=== PATIENT | female | born 1955 | race Hispanic/Latino ===

== ENCOUNTER 2019-02-07 19:42 | Emergency (ER) | payer SELFPAY ==
[~2019-02-07] VITALS: Ht 144.8 cm; Wt 83.0 kg
--- OUTSIDE RECORDS SUMMARY | 2019-02-07 19:45 | XMS REPORT ---
Author Author [facility] Address Unknown Phone Unavailable Care Team Providers Care Landscape Crew Member Name Role Phone Unavailable Unavailable Problems This patient has no known problems. Allergies, Adverse Reactions, Alerts This patient has no known allergies or adverse reactions. Medications This patient has no known medications. Encounters Start Date/Time End Date/Time Encounter Type Admission Type Attending [facility] Care Department Encounter ID 2017-10-25 00:00:00 2017-10-25 00:00:00 Outpatient [facility] [id number] 2017-09-27 00:00:00 2017-09-27 00:00:00 Outpatient [facility] [id number] 2017-04-29 08:08:57 2017-04-29 08:08:57 Outpatient [facility] [id number] 2017-04-07 09:08:04 2017-04-07 09:08:04 Outpatient [facility] [id number]
[2019-02-07] MEDS ORDERED: METHYLPREDNISOLONE SOD SUCC 125 MG/2ML VIAL ONE (20:25)
[2019-02-07] MEDS ORDERED: ACETAMINOPHEN 325 MG TAB ONE (20:25)
[2019-02-07] MEDS ORDERED: ACETAMINOPHEN 325 MG TAB PO ONE (20:30)
[2019-02-07] MEDS ORDERED: METHYLPREDNISOLONE SOD SUCC 125 MG/2ML VIAL IM ONE (20:30)
[2019-02-07 20:39] LABS: STREPTOCOCCUS GRP A ANTIGEN NEGATIVE (NEGATIVE)
[2019-02-07 20:46] LABS: INFLUENZAE A&B ANTIGEN (RAPID) NEGATIVE (NEGATIVE)
--- NOTE | 2019-02-07 21:01 | Diagnostic Imaging Report ---
EXAMINATION: CHEST 2 VIEWS INDICATION: ^COUGH, SORE THROAT ^Y COMPARISON: None FINDINGS: PA and lateral views TUBES and LINES: None. LUNGS: Lungs are well inflated. There is no evidence of pneumonia or pulmonary edema. PLEURA: No pleural effusion or pneumothorax. Mild eventration of the right diaphragm. HEART AND MEDIASTINUM: The heart is normal in size. The aortic arch is ectatic. BONES AND SOFT TISSUES: Mild degenerative changes of the spine. There is trace inferior subluxation of the right humeral head. This may be positional. No associated fracture. Soft tissues are unremarkable. UPPER ABDOMEN: No free air under the diaphragm. IMPRESSION: No acute thoracic abnormality. Signed by: Dr. Cynthia Ortega MD on 02/07/2019 8:58 PM
[2019-02-07 21:23] VITALS: BP 108/82
== END 2019-02-07 21:40 | disposition home or self-care (01) ==
LOC: ER 19:42
DX: J20.9 Acute bronchitis, unspecified (principal); I10 Essential (primary) hypertension; E78.5 Hyperlipidemia, unspecified; J45.909 Unspecified asthma, uncomplicated; Z87.891 Personal history of nicotine dependence
CPT/HCPCS: 71046; 83518; 87070; 87400; 99283; J2930

== ENCOUNTER 2019-06-06 10:20 | Emergency (ER) | payer SELFPAY ==
[~2019-06-06] VITALS: Ht 144.8 cm; Wt 83.0 kg
--- OUTSIDE RECORDS SUMMARY | 2019-06-06 10:24 | XMS REPORT | Clinical Summary ---
Author Author [facility] Organization [facility] Address Unknown Phone Unavailable Care Team Providers Care Transport Assistant Name Role Phone Marlin Colvin MD PCP Allergies Comments Active Allergy Reactions Severity Noted Date Zach Inhibitors Cough Medium 12/11/2007 Medications End Date Status Medication Sig Dispensed Refills Start Date Active polyethylene glycol Add lukewarm 4000 mL 0 (GOLYTELY) [id number] drinking 6 -5.86 gram oral water to the solutionIndications: fill lydia (4 Family history of colon liters) and cancer shake. Drink as directed by your doctor.. Active aspirin 81 mg delayed Take 1 tablet 90 tablet 0 release by mouth 7 tabletIndications: daily. Dyspnea, unspecified type Active ketoconazole (NIZORAL) 2 Apply to 60 g 2 % topical affected area 8 creamIndications: daily. Onychomycosis Active ergocalciferol (VITAMIN Take 1 12 capsule 0 D2) 50,000 unit capsule by 8 capsuleIndications: mouth weekly. Vitamin D deficiency Active hydroCHLOROthiazide Take 1 tablet 90 tablet 0 (HYDRODIURIL) 25 mg by mouth 8 tabletIndications: Leg daily as swelling needed (leg swelling). Active fluticasone Inhale 1 Puff 60 Each 3 propion-salmeterol by mouth 2 8 (ADVAIR) 250-50 mcg/dose times daily. diskus inhalerIndications: Moderate persistent asthma without complication Active simvastatin (ZOCOR) 20 mg Take 1 tablet 90 tablet 3 tabletIndications: by mouth at 9 Hypercholesterolemia bedtime nightly. 02/07/2020 Active amLODIPine (NORVASC) 10 TOME 1 90 tablet 3 mg tabletIndications: TABLETA POR 9 Essential hypertension LA BOCA CADA ABBIE PARA LA MAIRSOL PRESION Active montelukast (SINGULAIR) Take 1 tablet 90 tablet 3 10 mg tabletIndications: by mouth at 9 Moderate persistent bedtime asthma without nightly. complication Active albuterol 90 Inhale 2 30 g 3 mcg/actuation Puffs by 9 inhalerIndications: mouth every 4 Restrictive airway hours as disease, Asthmatic needed for bronchitis, severe Wheezing or persistent, uncomplicated Shortness of Breath. Active loratadine (CLARITIN) 10 Take 1 tablet 90 tablet 3 mg tabletIndications: by mouth 9 Cough daily as needed for Allergies. Active losartan (COZAAR) 50 mg TOME 45 tablet 1 tabletIndications: 1/2(MEDIA) 9 Essential hypertension TABLETA POR LA BOCA CADA ABBIE Active Miscellaneous Medical by 1 Each 0 Supply MiscIndications: Misc.(Non-Jem 9 MARY GRACE (obstructive sleep g; Combo apnea) Route) route Apap 16-25 cm H2O for moderate sleep apnea. 10/23/2018 Discontinued montelukast (SINGULAIR) Take 1 tablet 90 tablet 3 10 mg tabletIndications: by mouth at 7 Asthmatic bronchitis, bedtime severe persistent, with nightly. acute exacerbation 06/13/2018 Discontinued predniSONE (DELTASONE) 50 Take 1 tablet 7 tablet 0 mg tabletIndications: by mouth 7 Dyspnea, unspecified type daily. 07/27/2018 Discontinued albuterol (PROVENTIL HFA) Inhale 2 30 g 3 90 mcg/actuation Puffs by 7 inhalerIndications: mouth every 4 Restrictive airway hours as disease, Asthmatic needed for bronchitis, severe Wheezing or persistent, uncomplicated Shortness of Breath. 06/13/2018 Discontinued albuterol (PROVENTIL HFA) Inhale 2 30 g 3 90 mcg/actuation Puffs by 8 inhalerIndications: mouth every 4 Restrictive airway hours as disease, Asthmatic needed for bronchitis, severe Wheezing or persistent, uncomplicated Shortness of Breath. 06/29/2018 Discontinued amLODIPine (NORVASC) 10 TOME 1 90 tablet 0 05/25/201 mg tabletIndications: TABLETA POR 8 Essential hypertension LA BOCA CADA ABBIE PARA LA MARISOL PRESION 06/29/2018 Discontinued simvastatin (ZOCOR) 20 mg Take 1 tablet 90 tablet 0 tabletIndications: by mouth at 8 Hypercholesterolemia bedtime nightly. 06/29/2018 Discontinued loratadine (CLARITIN) 10 Take 1 tablet 90 tablet 0 mg tabletIndications: by mouth 8 Cough daily as needed for Allergies. 06/29/2018 Discontinued losartan (COZAAR) 50 mg TOME 45 tablet 1 tabletIndications: 11/15(MEDIA) 8 Essential hypertension TABLETA POR LA BOCA CADA ABBIE 06/29/2018 Discontinued fluticasone-salmeterol Inhale 1 Puff 60 Each 1 (ADVAIR) 250-50 mcg/dose by mouth 2 8 diskus times daily. inhalerIndications: Dyspnea, unspecified type 06/29/2018 Discontinued hydroCHLOROthiazide Take 1 tablet 90 tablet 0 (HYDRODIURIL) 25 mg by mouth 8 tabletIndications: Leg daily as swelling needed (leg swelling). 03/26/2019 Discontinued predniSONE (DELTASONE) 20 Take 1 tablet 4 tablet 0 mg tabletIndications: by mouth 8 Moderate persistent daily. asthma without complication 07/27/2018 Discontinued fluticasone-salmeterol Inhale 1 Puff 60 Each 1 (ADVAIR) 250-50 mcg/dose by mouth 2 8 diskus times daily. inhalerIndications: Moderate persistent asthma without complication 02/22/2019 Discontinued losartan (COZAAR) 50 mg TOME 45 tablet 1 tabletIndications: 11/15(MEDIA) 8 Essential hypertension TABLETA POR LA BOCA CADA ABBIE 07/27/2018 Discontinued simvastatin (ZOCOR) 20 mg Take 1 tablet 90 tablet 0 tabletIndications: by mouth at 8 Hypercholesterolemia bedtime nightly. 07/27/2018 Discontinued amLODIPine (NORVASC) 10 TOME 1 90 tablet 0 mg tabletIndications: TABLETA POR 8 Essential hypertension LA BOCA CADA ABBIE PARA LA MARISOL PRESION 07/27/2018 Discontinued loratadine (CLARITIN) 10 Take 1 tablet 90 tablet 0 mg tabletIndications: by mouth 8 Cough daily as needed for Allergies. 03/26/2019 Discontinued codeine-guaiFENesin Take 5 mL by 120 mL 0 (CHERATUSSIN AC) 10-100 mouth 3 times 8 mg/5 mL syrupIndications: daily as Cough needed for Cough. 02/22/2019 Discontinued albuterol 90 Inhale 2 30 g 3 mcg/actuation Puffs by 8 inhalerIndications: mouth every 4 Restrictive airway hours as disease, Asthmatic needed for bronchitis, severe Wheezing or persistent, uncomplicated Shortness of Breath. 12/22/2018 Discontinued simvastatin (ZOCOR) 20 mg Take 1 tablet 90 tablet 0 tabletIndications: by mouth at 8 Hypercholesterolemia bedtime nightly. 12/22/2018 Discontinued amLODIPine (NORVASC) 10 TOME 1 90 tablet 0 mg tabletIndications: TABLETA POR 8 Essential hypertension LA BOCA CADA ABBIE PARA LA MARISOL PRESION 02/22/2019 Discontinued loratadine (CLARITIN) 10 Take 1 tablet 90 tablet 0 mg tabletIndications: by mouth 8 Cough daily as needed for Allergies. 02/22/2019 Discontinued montelukast (SINGULAIR) Take 1 tablet 90 tablet 3 10 mg tabletIndications: by mouth at 8 Moderate persistent bedtime asthma without nightly. complication 02/22/2019 Discontinued simvastatin (ZOCOR) 20 mg Take 1 tablet 90 tablet 0 tabletIndications: by mouth at 9 Hypercholesterolemia bedtime nightly. 02/22/2019 Discontinued amLODIPine (NORVASC) 10 TOME 1 90 tablet 0 mg tabletIndications: TABLETA POR 9 Essential hypertension LA BOCA CADA ABBIE PARA LA MARISOL PRESION Active Problems Problem Noted Date MARY GRACE (obstructive sleep apnea) Needs APAP 16-25 H2O 05/31/2018 BMI 39.0-39.9,adult 02/28/2017 Family history of colon cancer 08/23/2014 Cough 05/08/2008 Asthma, moderate persistent 12/11/2007 Allergic rhinitis, cause unspecified 10/12/2006 HTN (hypertension), benign 07/20/2006 Hypercholesterolemia 07/15/2006 Asthmatic bronchitis, severe persistent, uncomplicated SOB (shortness of breath) Encounters Care Team Description Date Type Specialty Jasmyne, Estrella R Oropharyngeal dysphagia (Primary Dx) 05/21/2019 Hospital Speech Therapy Encounter Marlin Colvin MD Dysphagia, unspecified type 05/21/2019 Hospital Radiology Encounter 05/21/2019 Travel Marlin Colvin MD Preventative health care 04/12/2019 Ancillary Radiology Procedure Marlin Colvin MD Essential hypertension; Prediabetes 04/12/2019 Lab Appointment Lab Marlin Colvin MD [facility] health care 04/12/[address] [facility] Silvia Don 03/27/2019 Clinical Case Social Work Mgt Marlin Colvin MD Essential hypertension (Primary Dx); Hypercholesterolemia; Preventative health care; Dysphagia, unspecified type; Prediabetes; Dysphasia; Coarse tremors; MARY GRACE (obstructive sleep apnea) 03/26/[address] [facility] Marlin Colvin MD [facility] health care 03/26/[address] [facility] 03/26/2019 Jordan Nugent MD Dyspnea on exertion (Primary Dx); Hypercholesterolemia; Essential hypertension; Moderate persistent asthma without complication; Restrictive airway disease; Asthmatic bronchitis, severe persistent, uncomplicated; Cough 02/22/2019 Office Visit Pulmonology Reuben Severino RN 02/22/2019 Clinical Case Social Work Mgt 02/22/2019 Jordan Nugent MD Hypercholesterolemia; Essential hypertension 12/22/2018 Refill Pulmonology Jordan Weathers MD Moderate persistent asthma without complication (Primary Dx) 10/23/2018 Refill Pulmonology Tori Marley NP Well woman exam (Primary Dx); Need for influenza vaccination 09/19/2018 OB city clerk Jordan Weathers MD Papanicolaou test, as part of routine gynecological examination (Primary Dx); Moderate persistent asthma without complication; Restrictive airway disease; Asthmatic bronchitis, severe persistent, uncomplicated; Hypercholesterolemia; Essential hypertension; Cough 07/27/2018 Office Visit Pulmonology oJrdan Weathers MD Papanicolaou test, as part of routine gynecological examination 07/27/2018 Orders Only Pulmonology Jese Francisco MD Essential hypertension (Primary Dx); Moderate persistent asthma without complication; Hypercholesterolemia; Leg swelling; Cough; Dietary counseling for Above / Below Normal BMI; Exercise counseling for Above Normal BMI Only!; Weakness of both lower extremities 06/29/2018 Office Visit Family Practice Esdras Del Rio MD Moderate persistent asthma without complication (Primary Dx); SOB (shortness of breath); Cough 06/13/2018 Emergency Emergency Medicine after 06/05/2018 Immunizations Name Administration Dates Next Due Albuterol 0.083% (3ml) 08/12/2010 Herpes Zoster Vaccine In 04/07/2018 Clinic Influenza Vaccine 01/25/2017 (Deferred: Other), 10/21/2015 (Deferred: Other - patient to return for vaccine when feeling better.), 08/23/2014, 10/02/2013, 11/13/2012 (Deferred: Unavailable-Patient to return for vaccine later - Unavailable), 11/22/2011 (Deferred: Patient Refused), 11/03/2010, 10/16/2008 Influenza, 09/19/2018 Vaccine<FLUCELVAX>(Multi- Dose) Ipratropium 0.02t (2.5ml) 10/11/2017, 08/12/2010 PPV 23 Pneumococcal 10/16/2008 Polysaccaride Td Tetanus, diphtheria 10/16/2008 Toxoids Vaccine Tdap (Tetanus Toxoid, 03/26/2019 Reduced Diphtheria Toxoid And Acellular Pertussis, Absorbed) Triamcinolone 40mg/ml Inj 05/13/2008 Family History Medical History Relation Name Comments Diabetes Brother Cancer Father colon cancer Diabetes Father Hypertension Father Arthritis Mother Diabetes Mother Heart Mother Hypertension Mother Stroke Mother Unexplained Son Relation Name Status Comments Brother Brother Alive Brother Alive Daughter Alive Daughter Alive Father colon cancer (Age 63) Maternal Grandfather Maternal Grandmother Mother heart attack (Age 74) Paternal Grandfather Paternal Grandmother Sister Alive Sister Alive Sister Alive Sister Alive Sister Alive Son Alive Son Son Alive Social History Date Tobacco Use Types Packs/Day Years Used Never Smoker Smokeless Tobacco: Never Used Tobacco Cessation: Counseling Given: No Drinks/Week oz/Week Comments Alcohol Use No Food Insecurity Answer Date Recorded Within the past 12 months, you worried that your Never true 04/07/2018 food would run out before you got money to buy more. Within the past 12 months, the food you bought Never true 04/07/2018 just didn't last and you didn't have money to get more. Sex Assigned at Date Recorded Not on file Industry Job Start Date Occupation Not on file Not on file Not on file Travel End Travel History Travel Start No recent travel history available. Last Filed Vital Signs Reading Time Taken Comments Vital Sign 149/99 03/26/2019 12:58 PM CDT Blood Pressure 85 03/26/2019 12:58 PM CDT Pulse 37 C (98.6 F) 03/26/2019 12:58 PM CDT Temperature 20 03/26/2019 12:58 PM CDT Respiratory Rate 97% 07/27/2018 2:29 PM CDT Oxygen Saturation - - Inhaled Oxygen Concentration 84.4 kg (186 lb) 03/26/2019 12:58 PM CDT Weight 147.3 cm (4' 10") 03/26/2019 12:58 PM CDT Height 38.87 03/26/2019 12:58 PM CDT Body Mass Index Plan of Treatment Care Team Description Date Type Specialty Benito Kang Jr., MD [address] [place], [place] [id number] waitlist pt: 2 week lab follow up 06/12/2019 Office Visit Family Practice Jordan Weathers MD [address] [place] [address] 07/05/2019 Office Visit Pulmonology Health Maintenance Due Date Last Done Comments Breast Cancer Scrn 04/12/2020 04/12/2019, 04/28/2018, 03/07/2017, (Yearly) Additional history exists Colorectal Cancer Scrn 04/12/2020 04/12/2019, 11/24/2017, 12/03/2016, Annual (FIT/FOBT) Age 52 Additional history exists to 77 Cervical Cancer Scrn (3 09/19/2021 09/19/2018, 02/17/2015, 11/24/2010 Yrs) Procedures Comments Procedure Name Priority Date/Time Associated Diagnosis XRAY MODIFIED BARIUM Routine 05/21/2019 Dysphagia, unspecified SWALLOW W CINE/VIDEO 11:39 AM CDT type (MBS) FECAL OCCULT BLOOD Routine 04/12/2019 Preventative health care 4:51 PM CDT MAMMOGRAM BILAT SCREEN Routine 04/12/2019 Preventative health care DIGITAL 10:43 AM CDT HEMOGLOBIN A1C Routine 04/12/2019 Prediabetes 8:46 AM CDT LIPID PROFILE Routine 04/12/2019 Essential hypertension 8:46 AM CDT LIVER PROFILE Routine 04/12/2019 Essential hypertension 8:46 AM CDT BASIC METABOLIC PANEL Routine 04/12/2019 Essential hypertension 8:46 AM CDT CBC/DIFF Routine 04/12/2019 Essential hypertension 8:46 AM CDT HEMOCCULT KIT FOR Routine 03/27/2019 [facility] care SPECIMEN COLLECTION AT 2:00 AM CDT HOME HPV HIGH-RISK Routine 09/19/2018 Well woman exam 1:39 PM [employer] [facility] CYTOLOGY Routine 09/19/2018 12:00 AM [employer] POCT BNP (B-TYPE Routine 06/13/2018 NATRIURETIC PEPTIDE) 6:51 AM CDT 12 LEAD EKG Routine 06/13/2018 6:48 AM CDT D-DIMER STAT 06/13/2018 6:48 AM CDT TROPONIN I POC Routine 06/13/2018 12:33 AM CDT BASIC METABOLIC PANEL STAT 06/13/2018 12:32 AM CDT CBC/DIFF STAT 06/13/2018 12:32 AM CDT XRAY CHEST 2 VIEWS STAT 06/12/2018 Moderate persistent 6:45 PM CDT asthma without complication after 06/05/2018 Results * XRAY MODIFIED BARIUM SWALLOW W CINE/VIDEO (MBS) (05/21/2019 11:39 AM CDT) Specimen Impressions Performed At IMPRESSION: SMS 1. Normal modified barium swallow. Details please refer to the report of a speech therapist. 2. Normal esophagram. This does not exclude reflux at times. 3. Thickening of gastric rugae suggestive of gastritis. Correlation with H. Pylori testing recommended. Signed By: Monika Wilson MD, 05/22/2019 10:08 AM Narrative Performed At EXAM: XRAY MODIFIED BARIUM SWALLOW W CINE/VIDEO (MBS) [facility] EXAM: ROUTINE ESOPHAGRAM DATE: 05/21/2019 11:39 AM INDICATION: Dysphagia. ADDITIONAL INFORMATION: Parkinson's disease? TECHNIQUE: Video fluoroscopy was done with patientupright, lateral projection, during swallowing of various consistencies of barium with speech therapist in attendance, IMG 18/FLT 78 secs/TDAP 7.23 Gycm^2 FINDINGS: The patient swallowed adequate amount of barium which passed into esophagus promptly. There is adequate opening of the upper esophageal sphincter. The oral and pharyngeal phases of swallowing are [unremarkable]. No penetration into the laryngeal vestibule or aspiration into the trachea occurred. During this, a barium swallow was carried out using single contrast techniques. The esophagus shows the normal caliber peristalsis and emptying. There is no hiatal hernia. Reflux was seen today but this does not exclude reflux at other times. Incidentally, adequate gastric emptying is noted. There is thickening of gastric folds suggesting chronic gastritis. Procedure Note Interface, Rad/Mammog In - 05/22/2019 10:13 AM CDT EXAM: XRAY MODIFIED BARIUM SWALLOW W CINE/VIDEO (MBS) EXAM: ROUTINE ESOPHAGRAM DATE: 05/21/2019 11:39 AM INDICATION: Dysphagia. ADDITIONAL INFORMATION: Parkinson's disease? TECHNIQUE: Video fluoroscopy was done with patient upright, lateral projection, during swallowing of various consistencies of barium with speech therapist in attendance, IMG 18/FLT 78 secs/TDAP 7.23 Gycm^2 FINDINGS: The patient swallowed adequate amount of barium which passed into esophagus promptly. There is adequate opening of the upper esophageal sphincter. The oral and pharyngeal phases of swallowing are [unremarkable]. No penetration into the laryngeal vestibule or aspiration into the trachea occurred. During this, a barium swallow was carried out using single contrast techniques. The esophagus shows the normal caliber peristalsis and emptying. There is no hiatal hernia. Reflux was seen today but this does not exclude reflux at other times. Incidentally, adequate gastric emptying is noted. There is thickening of gastric folds suggesting chronic gastritis. IMPRESSION IMPRESSION: 1. Normal modified barium swallow. Details please refer to the report of a speech therapist. 2. Normal esophagram. This does not exclude reflux at times. 3. Thickening of gastric rugae suggestive of gastritis. Correlation with H. Pylori testing recommended. Signed By: Monika Wilson MD, 05/22/2019 10:08 AM Performing Organization Address City/State/Zipcode Phone Number SMS * OCCULT BLOOD ICT (04/12/2019 4:51 PM CDT) Occult Blood Negative NEG [facility] ICT Specimen Stool Performing Organization Address City/State/Zipcode Phone Number [facility] * MAMMOGRAM BILAT SCREEN DIGITAL (04/12/2019 10:43 AM CDT) Specimen Impressions Performed At IMPRESSION: BENIGN SMS There is no mammographic evidence of malignancy. A 1 year screening mammogram is recommended. This document has been electronically signed. Collin Dotson/fior:04/12/2019 11:03:54 Slurry Blender: Ms. Suyapa Art RT(R)(M), [facility] letter sent: Mammography Normal Mammogram BI-RADS: 2 Benign G0202 z12.31 Narrative Performed At #[id number] - MAMMOGRAM BILAT SCREEN DIGITAL SMS BILATERAL DIGITAL SCREENING MAMMOGRAM WITH CAD: 04/12/2019 CLINICAL: Screening for malignancy. Comparison is made to exams dated:04/28/2018, 03/07/2017, 02/19/2016, and 12/04/2014 [facility]. The tissue of both breasts is predominately fatty. Current study was also evaluated with a Computer Aided Detection (CAD) system. There are benign calcifications in both breasts. No significant masses, calcifications, or other findings are seen in either breast. There has been no significant interval change. Procedure Note Interface, Rad/Mammog In - 04/12/2019 12:55 PM CDT #[id number] - MAMMOGRAM BILAT SCREEN DIGITAL BILATERAL DIGITAL SCREENING MAMMOGRAM WITH CAD: 04/12/2019 CLINICAL: Screening for malignancy. Comparison is made to exams dated: 04/28/2018, 03/07/2017, 02/19/2016, and 12/04/2014 [facility]. The tissue of both breasts is predominately fatty. Current study was also evaluated with a Computer Aided Detection (CAD) system. There are benign calcifications in both breasts. No significant masses, calcifications, or other findings are seen in either breast. There has been no significant interval change. IMPRESSION IMPRESSION: BENIGN There is no mammographic evidence of malignancy. A 1 year screening mammogram is recommended. This document has been electronically signed. Collin Dotson/fior:04/12/2019 11:03:54 Slurry Blender: Ms. Suyapa Art RT(R)(M), [facility] letter sent: Mammography Normal Mammogram BI-RADS: 2 Benign G0202 z12.31 Performing Organization Address City/[facility]/Zipcode Phone Number SMS * HEMOGLOBIN A1C (04/12/2019 8:46 AM CDT) Hemoglobin A1c 6.2 (H) 4.3 - 6.1 % [facility] IMMUNOLOGY Est Average 131.2 mg/dL [facility] Gluc IMMUNOLOGY Specimen Blood Performing Organization Address [facility] Phone Number [facility] * LIVER PROFILE (04/12/2019 8:46 AM CDT) Protein, Total, 7.1 6.0 - 8.3 g/dL [facility] Serum 1 Albumin 4.2 3.7 - 5.3 g/dL [facility] 1 Bilirubin, 0.8 0.2 - 1.2 mg/dL [facility] Total 1 Alkaline 95 34 - 104 U/L [facility] Phosphatase, S 1 AST (SGOT) 24 13 - 39 U/L [facility] 1 ALT 23 7 - 52 U/L [facility] 1 D Bilirubin 0.1 0.0 - 0.2 mg/dL [facility] 1 Specimen Blood Performing Organization Address [facility] Phone Number M[facility]YS [facility] 1 * LIPID PROFILE (04/12/2019 8:46 AM CDT) Cholesterol 184 mg/dL [facility] Comment: 1 REFERENCE RANGE: Desirable: <200 mg/dL Borderline: 200-240 mg/dL High Risk: >240 mg/dL Triglyceride 100 <150 mg/dL [facility] Comment: 1 REFERENCE RANGE: Normal: <150 mg/dL Borderline High: 150-199 mg/dL High: 200-499 mg/dL Very High: >fp=068 mg/dL HDL 61 mg/dL [facility] Comment: 1 Increased CHD risk: <40 mg/dL Decreased CHD risk: >60 mg/dL LDL 103 mg/dL [facility] Comment: 1 REFERENCE RANGE: Optimal: <100 mg/dL Near Optimal: 100-129 mg/dL Borderline High: 130-159 mg/dL High: 160-189 mg/dL Very High: >sw=353 mg/dL Specimen Blood Performing Organization Address City/State/Zipcode Phone Number MISYS [facility] 1 * CBC/DIFF (04/12/2019 8:46 AM CDT) Only the most recent of 2 results within the time period is included. WBC 5.8 4.5 - 11.0 K/uL BT [facility] 2 RBC 4.40 4.20 - 5.40 M/uL [facility] 2 Hemoglobin 13.6 12.0 - 16.0 g/dL [facility] 2 Hematocrit 42.6 37.0 - 47.0 % BT [facility] 2 MCV 97 (H) 82 - 92 fL [facility] 2 MCH 30.9 27.0 - 32.0 pg [facility] 2 MCHC 31.9 (L) 32.0 - 36.0 g/dL [facility] 2 RDW 49.3 (H) 36.4 - 46.3 fL BT [facility] 2 Platelets 274 150 - 400 K/uL [facility] 2 Mean Platelet 10.4 9.4 - 12.4 fL [facility] Volume 2 Percent NRBC 0.0 [facility] 2 Absolute NRBC 0.00 [facility] 2 Neutrophils 45.9 34.0 - 70.0 % [facility] 2 Lymphs 38.3 20.0 - 50.0 % [facility] 2 Monocytes 11.7 5.0 - 12.0 % [facility] 2 Eos 3.3 0.7 - 5.0 % [facility] 2 Basos 0.5 0.1 - 1.2 % BT [facility] 2 Immature 0.3 0.0 - 0.5 BT [facility] Granulocytes 2 Neutrophils 2.66 1.56 - 6.13 K/uL BT [facility] (Absolute) 2 Lymphs 2.22 1.18 - 3.74 K/uL BT [facility] (Absolute) 2 Monocytes(Absol 0.68 (H) 0.24 - 0.36 K/uL BT [facility] [place]) 2 Eos (Absolute) 0.19 0.04 - 0.36 K/uL BT [facility] 2 Baso (Absolute) 0.03 0.01 - 0.08 K/uL BT [facility] 2 Immature Grans 0.02 0.00 - 0.03 K/uL BT [facility] (Abs) 2 Specimen Blood Performing Organization Address [facility] Phone Number [facility] 2 * BASIC METABOLIC PANEL (04/12/2019 8:46 AM CDT) Only the most recent of 2 results within the time period is included. Pathologist [facility] CO2 30 21 - 31 mmol/L BT [facility] 1 Chloride 103 98 - 107 mmol/L BT [facility] 1 Potassium 4.0 3.5 - 5.1 mmol/L BT [facility] 1 Sodium 142 136 - 145 mmol/L [facility] 1 Glucose 90 70 - 110 mg/dL [facility] 1 BUN 14 7 - 25 mg/dL [facility] 1 Creatinine 0.50 (L) 0.6 - 1.2 mg/dL [facility] 1 Anion Gap 9 BT [facility] 1 Calcium 9.6 8.6 - 10.3 mg/dL [facility] 1 GFR, Estimated >60 mL/min/1.73 m2 [facility] 1 eGFR If Africn >60 mL/min/1.73 m2 [facility] Am 1 Specimen Blood Performing Organization Address [facility] Phone Number [facility] * HPV HIGH-RISK (09/19/2018 1:39 PM [employer]) Pathologist [facility] HPV High Risk Negative NEG BT DIAGNOSTIC Comment: IMMUNOLOGY The APTIMA HPV Assay is an in vitro nucleic acid amplification test for the qualitative detection of E6/E7 viral messenger RNA (mRNA) from 14 high-risk types of human papillomavirus (HPV) in cervical specimens. The high-risk HPV types detected by the assay include: 16,18,31,33,35,39,45,51,52,56, 58,59,66, and 68. CoPath Spec [id number] BT DIAGNOSTIC Number IMMUNOLOGY Specimen Performing Organization Address [facility] Phone Number M[facility]YS DIAGNOSTIC IMMUNOLOGY * BTGH CYTOLOGY (09/19/2018 12:00 AM ASSEM[employer]ER [employer]UC[employer]) HX FINAL Cervicovaginal (liquid-based COPATH DIAGNOSIS preparation): Satisfactory for evaluation No presence of endocervical/transformation zone Cytolysis Negative for intraepithelial lesion or malignancy Specimen Narrative Performed At Name LEAH DAVENPORT Date of 1955 Hospital Number [id number] [facility] (OP) CYTOPATHOLOGY Collected:09/19/2018 00:00 Received: 09/21/2018 10:20 FINAL DIAGNOSIS Cervicovaginal (liquid-based preparation): Satisfactory for evaluation No presence of endocervical/transformation zone Cytolysis Negative for intraepithelial lesion or malignancy Electronically Signed Out By Tressa Gilmore Clinical History Date of Last Menstrual Period: 09/28/2010 Menstrual History: Pregnancies: (1 set of twins) A0 Specimen Received: One ThinPrep Vial Educational Note: The pap smear/test is a screening test for cervical cancer.As with screening procedures, both false negative and false positive results may occur.Hence, the results should be interpreted in the context of patient's history and current clinical information. The slide has been analyzed by the automated ThinPrep Imaging System, [employer], [place], [place]. Performing Organization Address [facility] Phone Number [facility] [place] * POCT BNP (BRAIN NATRIURETIC PEPTIDE) (06/13/2018 6:51 AM CDT) B Natr Pept POC <15 0 - 100 pg/mL BT MAIN-STATION 1 Specimen Performing Organization Address 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 Measurements Intervals [place] Rate: 68 P:44 VT: 186 QRS: 11 QRSD: 100 T: 39 QT: 391 QTc:418 Interpretive Statements SINUS RHYTHM LOW QRS VOLTAGE IN PRECORDIAL LEADS Electronically Signed On 06-13-18 07:06:32 CDT by Angelique Ma M.D. Specimen Performing Organization Address [facility] Phone Number SMS * D-DIMER (06/13/2018 6:48 AM CDT) D-Dimer 0.80 ug/mL,FEU BT MAIN-STATION Comment: 1 Values of quantitative d-Dimer less than 0.40 ug/mL FEU have been reported to be associated with a low probability of deep vein thrombosis/pulmonary embolism. This test alone should not be used to rule out DVT/PE. Specimen Blood Performing Organization Address [facility] Phone Number MISYS BT MAIN-STATION 1 * TROPONIN I POC (06/13/2018 12:33 AM CDT) Troponin POC 0.00 0.00 - 0.08 ng/mL BT MAIN-STATION 1 Specimen Performing Organization Address [facility] Phone Number MISYS BT MAIN-STATION 1 * XRAY CHEST 2 VIEWS (06/12/2018 6:45 PM CDT) Specimen Impressions Performed At IMPRESSION: SMS 1.No acute thoracic abnormality. Specifically, no focal consolidation. 2.Persistent elevation of the right hemidiaphragm, mildly increased from prior. Dictated By: Yessica Cam MD, 06/12/2018 7:55 PM I have reviewed the study and agree with the findings in this report. Signed By: Nika Calderon MD, 06/12/2018 8:04 PM Narrative Performed At EXAMINATION:XRAY CHEST 2 VIEWS SMS INDICATION: cough COMPARISON:Chest radiographs 10/12/2017. FINDINGS:PA and lateral views TUBES and LINES:None. LUNGS: Elevation of the right hemidiaphragm. Lungs are clear. There is no evidence of pneumonia or pulmonary edema. PLEURA:Trace left pleural effusion. HEART AND MEDIASTINUM:The cardiomediastinal silhouette is unremarkable. Tortuous thoracic aorta. BONES AND SOFT TISSUES:No acute osseous lesion.Soft tissues are unremarkable. Degenerative changes of the acromioclavicular joints bilaterally. UPPER ABDOMEN: No free air under the diaphragm. Procedure Note Interface, Rad/Mammog In - 06/12/2018 8:09 PM CDT EXAMINATION: XRAY CHEST 2 VIEWS INDICATION: cough COMPARISON: Chest radiographs 10/12/2017. FINDINGS: PA and lateral views TUBES and LINES: None. LUNGS: Elevation of the right hemidiaphragm. Lungs are clear. There is no evidence of pneumonia or pulmonary edema. PLEURA: Trace left pleural effusion. HEART AND MEDIASTINUM: The cardiomediastinal silhouette is unremarkable. Tortuous thoracic aorta. BONES AND SOFT TISSUES: No acute osseous lesion. Soft tissues are unremarkable. Degenerative changes of the acromioclavicular joints bilaterally. UPPER ABDOMEN: No free air under the diaphragm. IMPRESSION IMPRESSION: 1. No acute thoracic abnormality. Specifically, no focal consolidation. 2. Persistent elevation of the right hemidiaphragm, mildly increased from prior. Dictated By: Yessica Cam MD, 06/12/2018 7:55 PM I have reviewed the study and agree with the findings in this report. Signed By: Nika Calderon MD, 06/12/2018 8:04 PM Performing Organization Address City/State/Zipcode Phone Number SMS after 06/05/2018 Insurance Type Payer Benefit Subscriber ID Effective Phone Address Plan / Dates Group [place] [employer] [place] 2018- [phone] [employer] [id number] PLANN[place], [place] [address] [employer] xxxxx 2018- [phone] [id number] [id number] [address] [place] [address]
[2019-06-06] MEDS ORDERED: SODIUM CHLORIDE 0.9% 500ML 500 ML IV STA (10:43)
--- NOTE | 2019-06-06 10:54 | NUR ---
PATIENT IN RESTROOM AT THIS TIME; PATIENT TO GO TO CT IMMEDIATELY FOLLOWING
--- NOTE | 2019-06-06 11:04 | NUR ---
GAVE PACKET OF INFORMATION WITH COMM[employer]ITY [employer] FOR ASSISTANCE WITH LOW TO NO INCOME TO PATIENT. RESOURCES THAT PATIENT MAY BE ABLE TO FOLLOW UP UPON DISCHARGE. PT EDUCATED ON EACH RESOURCE AND UNDERSTANDING HOW TO FOLLOW UP TO SEE IF QUALIFIED FOR EACH RESOURCE.
--- NOTE | 2019-06-06 11:23 | Diagnostic Imaging Report ---
EXAMINATION: CHEST SINGLE (PORTABLE) INDICATION: Pain COMPARISON: None FINDINGS: TUBES and LINES: None. LUNGS: The lung volumes are normal. No focal consolidation or pulmonary edema. PLEURA: No pleural effusion or pneumothorax. HEART AND MEDIASTINUM: The cardiomediastinal silhouette is normal in size and contour. BONES AND SOFT TISSUES: No acute fracture or dislocation. UPPER ABDOMEN: No free air under the diaphragm. IMPRESSION: No focal pneumonia or pulmonary edema. Signed by: Meliza Cedeño MD on 06/06/2019 11:19 AM
--- NOTE | 2019-06-06 11:29 | Diagnostic Imaging Report ---
Exam: Head CT without contrast History: Weakness, tremulous, can't walk Comparison studies: None Technique: Axial images were obtained from the skull base to the vertex. Coronal and sagittal images reconstructed from the axial data. Dose modulation, iterative reconstruction, and/or weight based adjustment of the mA/kV was utilized to reduce the radiation dose to as low as reasonably achievable. Radiation dose: Total DLP: 921 mGy*cm. Estimated effective dose: DLP x 0.015 Intravenous contrast: None Findings: Scalp: No abnormalities. Bones: No fractures, blastic or lytic lesions. Brain sulci: Prominent cerebellar folia particularly along the superior cerebellum and vermis. Similar findings have been reported in patients with history of chronic EtOH in the appropriate clinical setting, among other etiologies. Remaining sulci are normal for age. Ventricles: Normal in size and configuration. No hydrocephalus. Extra-axial spaces: Incidental small midline retrocerebellar arachnoid cyst. No other mass or fluid collection. Parenchyma: No abnormal densities. No masses, acute hemorrhage, acute or chronic vascular insults. Sellar/suprasellar region: Partially CSF of sella, a nonspecific finding. Craniocervical junction: Patent foramen magnum. No Chiari one malformation. Incidental findings: Atherosclerotic calcifications in the carotid siphons. IMPRESSION: 1. No acute intracranial abnormalities. 2. Nonspecific cerebellar volume loss. Signed by: Dr. Zackary Olivo M.D. on 06/06/2019 11:26 AM
[2019-06-06 11:38] LABS: BASOPHILS % 0.7 % (0.0-1.0); EOSINOPHILS % 0.5 % (0.0-6.0); HEMATOCRIT 39.8 % (34.2-44.1); LYMPHOCYTES % 34.2 % (18.0-39.1); MEAN CORPUSCULAR HEMOGLOBIN 30.6 pg (28-32); MEAN CORPUSCULAR HGB CONC 32.7 g/dL (31-35); MEAN CORPUSCULAR VOLUME 93.6 fL (81-99); MONOCYTES # (AUTO) 0.5 (0.2-0.8); MONOCYTES % 7.6 % (4.4-11.3); NEUTROPHILS # (AUTO) 3.4 (2.1-6.9); NEUTROPHILS % 56.7 % (38.7-80.0); PLATELET COUNT 266 x10e3/uL (140-360); RED BLOOD COUNT 4.25 x10e6/uL (3.6-5.1); RED CELL DISTRIBUTION WIDTH 13.6 % (11.7-14.4)
[2019-06-06 11:40] LABS: BILIRUBIN,URINE NEGATIVE (NEGATIVE); CLARITY,URINE CLEAR (CLEAR); COLOR,URINE YELLOW (YELLOW); KETONES,URINE NEGATIVE (NEGATIVE); LEUKOCYTE ESTERASE ,URINE NEGATIVE (NEGATIVE); NITRITE,URINE NEGATIVE (NEGATIVE); PROTEIN,URINE DIPSTICK NEGATIVE (NEGATIVE); URINE UROBILINOGEN 0.2 mg/dL (0.2 - 1)
--- NOTE | 2019-06-06 11:50 | NUR ---
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 ALSO ADVISED WE ARE NOT AFFILIATED WITH [facility] AND THAT THEY WOULD MOST LIKLY BE CONTACTED FROM SOME ONE IN THE BUSINESS OFFICE.
[2019-06-06 12:09] LABS: ALANINE AMINOTRANSFERASE 48 IU/L (0-55); ALBUMIN 3.7 g/dL (3.5-5.0); ALBUMIN/GLOBULIN RATIO 0.7 (0.8-2.0); ALKALINE PHOSPHATASE 99 IU/L (40-150); AMYLASE 64 U/L (25-125); ANION GAP 14.3 mmol/L (8-16); BLOOD UREA NITROGEN 7 mg/dL (7-26); BUN/CREATININE RATIO 10 (6-25); CALCIUM 9.7 mg/dL (8.4-10.2); CARBON DIOXIDE 28 mmol/L (22-29); CHLORIDE 100 mmol/L (98-107); CREATINE KINASE 139 IU/L (29-168); CREATININE, SERUM 0.69 mg/dL (0.57-1.11); EST GLOMERULAR FILTRATION RATE > 60 ML/MIN (60-); GLUCOSE 121 mg/dL (74-118); LIPASE 39 U/L (8-78); MAGNESIUM 2.3 MG/DL (1.3-2.1); POTASSIUM 3.3 mmol/L (3.5-5.1); SODIUM 139 mmol/L (136-145)
[2019-06-06 12:12] LABS: RBC,URINE 0-5 /HPF (0-5); WBC,URINE (MAN) 0-5 /HPF (0-5)
[2019-06-06 12:13] LABS: BACTERIA,URINE FEW /HPF; EPITHELIAL CELLS,URINE RARE /LPF
[2019-06-06] MEDS ORDERED: POTASSIUM CHLORIDE 20 MEQ TAB CR PO ONE (12:21)
[2019-06-06 12:28] LABS: THYROID STIMULATING HORMONE 1.607 uIU/mL (0.350-4.940)
== END 2019-06-06 13:59 | disposition home or self-care (01) ==
LOC: ER 10:20
DX: R53.1 Weakness (principal); E87.6 Hypokalemia; K52.9 Noninfective gastroenteritis and colitis, unspecified; R26.2 Difficulty in walking, not elsewhere classified; I10 Essential (primary) hypertension; E78.5 Hyperlipidemia, unspecified; J45.909 Unspecified asthma, uncomplicated
CPT/HCPCS: 36415; 70450; 71045; 80053; 81001; 82150; 82550; 82553; 83690; 83735; 84443; 84484; 85025; 87086; 93005; 99284; J7040

== ENCOUNTER 2020-08-15 10:28 | Emergency (ER) | payer SELFPAY ==
[~2020-08-15] VITALS: Ht 144.8 cm; Wt 83.0 kg
[2020-08-15] MEDS ORDERED: SODIUM CHLORIDE 0.9% 1000ML 1,000 ML IV STA (10:52)
[2020-08-15 11:03] LABS: BASOPHILS % 0.4 % (0.0-1.0); EOSINOPHILS # (AUTO) 0.2 (0.0-0.4); EOSINOPHILS % 2.4 % (0.0-6.0); HEMATOCRIT 44.8 % (34.2-44.1); HEMOGLOBIN 14.4 g/dL (12.0-16.0); LYMPHOCYTES # (AUTO) 3.3 (1.0-3.2); LYMPHOCYTES % 47.2 % (18.0-39.1); MEAN CORPUSCULAR HEMOGLOBIN 30.3 pg (28-32); MEAN CORPUSCULAR HGB CONC 32.1 g/dL (31-35); MEAN CORPUSCULAR VOLUME 94.1 fL (81-99); MONOCYTES # (AUTO) 0.6 (0.2-0.8); MONOCYTES % 8.4 % (4.4-11.3); NEUTROPHILS # (AUTO) 2.9 (2.1-6.9); NEUTROPHILS % 41.3 % (38.7-80.0); PLATELET COUNT 233 x10e3/uL (140-360); RED BLOOD COUNT 4.76 x10e6/uL (3.6-5.1); RED CELL DISTRIBUTION WIDTH 13.6 % (11.7-14.4)
[2020-08-15 11:13] LABS: INR 0.92; PROTHROMBIN TIME 12.8 seconds (11.9-14.5)
[2020-08-15 11:14] LABS: PARTIAL THROMBOPLASTIN TIME 27.9 seconds (23.8-35.5)
[2020-08-15 11:23] LABS: ALANINE AMINOTRANSFERASE 45 IU/L (0-55); ALBUMIN 4.7 g/dL (3.5-5.0); ALBUMIN/GLOBULIN RATIO 1.2 (0.8-2.0); ALKALINE PHOSPHATASE 108 IU/L (40-150); ANION GAP 13.9 mmol/L (8-16); BLOOD UREA NITROGEN 9 mg/dL (7-26); BUN/CREATININE RATIO 13 (6-25); CALCIUM 10.2 mg/dL (8.4-10.2); CARBON DIOXIDE 28 mmol/L (22-29); CHLORIDE 102 mmol/L (98-107); CREATINE KINASE 118 IU/L (29-168); CREATININE, SERUM 0.67 mg/dL (0.57-1.11); EST GLOMERULAR FILTRATION RATE > 60 ML/MIN (60-); GLUCOSE 99 mg/dL (74-118); POTASSIUM 3.9 mmol/L (3.5-5.1); SODIUM 140 mmol/L (136-145)
--- NOTE | 2020-08-15 11:42 | Diagnostic Imaging Report ---
EXAMINATION: CHEST SINGLE (PORTABLE) INDICATION: Numbness COMPARISON: None FINDINGS: LINES/TUBES:None LUNGS:The lungs are well-inflated. No focal consolidation or pulmonary edema. PLEURA:No pleural effusion or pneumothorax. MEDIASTINUM:The cardiomediastinal silhouette appears normal in size and shape. BONES/SOFT TISSUES:No acute osseous injury. ABDOMEN:No free air under the diaphragm. IMPRESSION: No focal pneumonia or pulmonary edema. Signed by: Meliza Cedeño MD on 08/15/2020 11:39 AM
--- NOTE | 2020-08-15 11:43 | Diagnostic Imaging Report ---
CT BRAIN WO HISTORY: Numbness on right side, possible stroke COMPARISON: Head CT 06/06/2019 TECHNIQUE: Noncontrast axial scans were obtained from skull base to the vertex. Coronal and sagittal reconstructions obtained from the axial data. One or more of the following dose reduction techniques were used: Automated exposure control, adjustment of the mA and/or kV according to patient size, and/or utilization of iterative reconstruction technique. DISCUSSION: Scalp/Skull: Unremarkable. Brain sulci: Appropriate for patient's age. Ventricles: Normal in size and configuration. No hydrocephalus. Extra-axial spaces: Stable mild focal prominence of the subarachnoid space posterior to the cerebellar vermis could be due to a small arachnoid cyst. No additional masses or fluid collections. Mild carotid siphon calcifications are present. Parenchyma: Mild cerebellar atrophy is unchanged. No mass, hemorrhage, or large vascular territory acute infarct. Dural sinuses: No abnormal densities. Sellar/Suprasellar region: Nonspecific partially empty sella. Skull base: Intact. Incidental findings: None. IMPRESSION: 1. No acute intracranial abnormalities. 2. No significant change compared to head CT dated 06/06/2019. 3. Nonspecific mild cerebellar atrophy. Signed by: Dr. Deon Davis M.D. on 08/15/2020 11:40 AM
[2020-08-15 11:44] LABS: THYROID STIMULATING HORMONE 1.815 uIU/mL (0.350-4.940)
--- OUTSIDE RECORDS SUMMARY | 2020-08-15 12:00 | XMS REPORT | Continuity of Care Document ---
Author Author [facility] t Organization [facility] Address [address] [place] [address] Phone Unavailable Care Team Providers Care Product Inspection Coordinator Name Role Phone NONSTAFF PCP Unavailable Elisha PLUMMER Attphys Unavailable Sarahy ARREDONDO, Pako Barros Attphys Marii ARREDONDO, Marlin Attphys Jan Lynch Attphys [phone] Shanell Corbett MD Attphys Davidson ResidentYoel ARREDONDO Attphys Serjio ResidentMDEugene Attphys [phone] Jan VILLEGAS Attphys Unavailable Payers Payer Name Policy Type Policy Number Effective Date Expiration Date S lukasz [employer] [employer] [id number]/2019-08/19/[id number] [address] xxxxx 2019 00:00:00 2020 23:59:59 Brandon Ocasio [facility] PLAN[employer]ANCIAL ASSISTANCE PROGRAMxxx xx2019-08/19/[id number] [place] [address] xxxxx 2019 00:00:00 2019-1106 23:59:59 Brandon Health Problems Condition Name Condition Details Condition Category Status Onset Date Resolution Date Last Treatment Date Treating Clinician Comments Source MARY GRACE (obstructive sleep apnea) Needs APAP 16-25 H2O MARY GRACE (obstructive sleep apnea) Needs APAP 16-25 H2O Disease Active 2018-05-31 00:00:00 [facility] BMI 39.0-39.9,adult BMI 39.0-39.9,adult Disease Active 2017-02-28 00:00 :00 [facility] Family history of colon cancer Family history of colon cancer Disea se Active 2014-08-23 00:00:00 [facility] Cough Cough Disease Active 2008-05-08 00:00:00 [facility] Asthma, moderate persistent Asthma, moderate persistent Disease Active 2007-12-11 00:00:00 [facility] Allergic rhinitis, cause unspecified Allergic rhinitis, caus e unspecified Disease Active 2006-10-12 00:00:00 [facility] HTN (hypertension), benign HTN (hypertension), benign Disease Active 2006-07-20 00:00:00 [facility] Hypercholesterolemia Hypercholesterolemia Disease Active 00:00:00 [facility] Asthmatic bronchitis, severe persistent, uncomplicated Asthmatic bronchitis, severe persistent, uncomplicated Disease Active [facility] SOB (shortness of breath) SOB (shortness of breath) Disease Active [facility] Allergies, Adverse Reactions, Alerts Allergy Name Allergy Type Status Severity Reaction(s) Onset Date Inacti ve Date Treating Clinician Comments Source Enalapril Allergy to Substance Active Severe 2019-02-07 00:00:00 [facility] Zach Inhibitors Propensity to adverse reactions to drug Active Cough 2007-12-11 00:00:00 [facility] Family History Family Member Diagnosis Comments Start Date Stop Date Source Natural brother Diabetes [facility] Natural father [facility] Natural father Diabetes [facility] Natural [facility] Hy[facility] Natural mother Arthritis [facility] Natural mother Diabetes [facility] Natural mother Heart [facility] Natural [facility] Hy[facility] Natural mother Stroke [facility] Natural son Unexplained [facility] Social History Social Habit Start Date Stop Date Quantity Comments Source Sex Assigned At [facility] Alcohol intake 2019-09-20 00:00:00 2019-09-20 00:00:00 Current non-drinker of alcohol (finding) [facility] History SDOH Food Worry 2018-04-07 00:00:00 2018-04-07 [facility] 2018-04-07 00:00:00 2018-04-07 00:00:00 1 [facility] Smoking Status Start Date Stop Date Source Never smoker [facility] Medications Ordered Medication Name Filled Medication Name Start Date Stop Da te Current Medication? Ordering Clinician Indication Dosage Frequency Signature (SIG) Comments Components Source amLODIPine (NORVASC) 10 mg tablet 2020-07-22 00:00:00 2020 23:59:00 Yes Essential hypertension TOME 1 TA BLETA POR LA BOCA CADA ABBIE PARA LA MARISOL PRESION [facility] valsartan (DIOVAN) 80 mg tablet 2020-03-12 00:00:00 Yes Essential hypertension 80mg QD Take 1 tablet by mouth daily. [facility] simvastatin (ZOCOR) 20 mg tablet 2020-03-10 00:00:00 Yes Hypercholesterolemia 20mg Take 1 tablet by mouth at bedtime nig htly. [facility] valsartan (DIOVAN) 80 mg tablet 2019-12-14 00:00:00 00:00:00 No Essential hypertension 80mg QD Take 1 tablet by mouth daily. [facility] albuterol 90 mcg/actuation inhaler 2019-12-11 00:00:00 Yes Asthmatic bronchitis, severe persistent, uncomplicated 2{puff} Inhale 2 Puffs by mouth every 4 hours as needed for Wheezing or Shortness of Breath. [facility] amLODIPine (NORVASC) 10 mg tablet 2019-07-05 00:00:00 2019 00:00:00 No Essential hypertension TOME 1 TA BLETA POR LA BOCA CADA ABBIE PARA LA MARISOL PRESION [facility] fluticasone propion-salmeteroL (ADVAIR) 250-50 mcg/dose disk us inhaler 2019-06-12 00:00:00 Yes Moderate persistent a sthma without complication 1{puff} Q.5D Inhale 1 Puff by mouth 2 times daily. [facility] valsartan (DIOVAN) 80 mg tablet 2019-06-12 00:00:00 00:00:00 No Essential hypertension 80mg QD Take 1 tablet by mouth daily stop l osartan. [facility] Miscellaneous Medical Supply Misc 2019-03-26 00:00:00 Yes MARY GRACE (obstructive sleep apnea) by [facility]Non-Drug; C ombo Route) route Apap 16-25 cm H2O for moderate sleep apnea. [facility] montelukast (SINGULAIR) 10 mg tablet 2019-02-22 00:00:00 Yes Moderate persistent asthma without complication 10mg T xiomy 1 tablet by mouth at bedtime nightly. [facility] loratadine (CLARITIN) 10 mg tablet 2019-02-22 00:00:00 Yes Cough 10mg Take 1 tablet by mouth daily as needed for Allergies. [facility] simvastatin (ZOCOR) 20 mg tablet 2019-02-22 00:00:00 2020-02 00:00:00 No Hypercholesterolemia 20mg Take 1 tablet by mouth at bedtime nig htly. [facility] albuterol 90 mcg/actuation inhaler 2019-02-22 00:00:00 202 00:00:00 No Asthmatic bronchitis, severe persistent, uncomplicated 2{puff} Inhale 2 Puffs by mouth every 4 hours as needed for Wheezing or Shortness of Breath. [facility] hydroCHLOROthiazide (HYDRODIURIL) 25 mg tablet 2018-06-29 00 :00:00 Yes Leg swelling 25mg Take 1 tablet by mouth daily as needed (leg swe lling). [facility] ergocalciferol (VITAMIN D2) 50,000 unit capsule 2018-05-23 0 0:00:00 Yes Vitamin D deficiency 58131I Take 1 capsule by mouth weekly. [facility] ketoconazole (NIZORAL) 2 % topical cream 2018-04-07 00:00:00 Yes Onychomycosis QD Apply to affected area daily. [facility] aspirin 81 mg delayed release tablet 2017-10-11 00:00:00 Yes Dyspnea, unspecified type 81mg QD Take 1 tablet by mouth daily. [facility] polyethylene glycol (GOLYTELY) 236-22.74-6.74 -5.86 gram ora l solution 2016-06-04 00:00:00 Yes Family history of colon cancer Add lukewarm drinking water to the fill lydia (4 liters) and shake. Drink as directed by your doctor.. [facility] albuterol (VENTOLIN HFA,PROVENTIL HFA,PROAIR HFA) 90 mcg/act uation inhaler 2016-06-04 00:00:00 Yes Acute bronchitis, unspecified organism 2{puff} Inhale 2 Puffs by mouth 4 times daily as needed for Wheezing or Shortness of Breath. [facility] Immunizations Ordered Immunization Name Filled Immunization Name Date Status Comments Source Tdap (Tetanus Toxoid, Reduced Diphtheria Toxoid And Acellular Pertussis, Absorbed) 2019-03-26 00:00:00 Completed [facility] Influenza, Vaccine<FLUCELVAX>(Multi-Dose) 2018-09-19 00:00 :00 Completed [facility] Herpes Zoster Vaccine In Clinic 2018-04-07 00:00:00 Comple guevara [facility] Influenza Vaccine 2014-08-23 00:00:00 Completed [facility] Influenza Vaccine 2013-10-02 00:00:00 Completed [facility] Influenza Vaccine 2010-11-03 00:00:00 Completed [facility] PPV 23 Pneumococcal Polysaccaride 2008-10-16 00:00:00 Comp leted [facility] Td Tetanus, diphtheria Toxoids Vaccine 2008-10-16 00:00:00 Completed [facility] Influenza Vaccine 2008-10-16 [facility] V[facility] Sign[facility] Vital Name Observation Time Observation Value Comments Source Systolic blood pressure 2019-09-20 14:14:00 120 mm[Hg] [facility] Diastolic blood pressure 2019-09-20 14:14:00 79 mm[Hg] [facility] Heart rate 2019-09-20 14:14:00 94 /min [facility] Body temperature 2019-09-20 14:14:00 36.61 Jayne Cathryn is [facility] Respiratory rate 2019-09-20 14:14:00 18 /min Cathryn [facility] Body height 2019-09-20 14:14:00 154.9 cm [facility] Body weight 2019-09-20 14:14:00 81.194 kg [facility] BMI 2019-09-20 14:14:00 33.82 kg/m2 [facility] Procedures Procedure Date / Time Performed Performing Clinician [facility] e Computed tomography of brain without radiopaque contrast 201 07-21-24 00:00:00 TIFFANIE RENTERIA [facility] X-ray of chest, two views 2019-02-07 00:00:00 KATHI VILLEGAS [facility] Plan of Care Planned Activity Planned Date Details Comments Source Future Scheduled Test 2021-09-19 00:00:00 Screening for kimmy gnant neoplasm of cervix (procedure) [code = 899536828] [facility] Future Scheduled Test 2020-04-12 00:00:00 Breast Cancer Scrn (Yearly) [code = Breast Cancer Scrn (Yearly)] [facility] Future Scheduled Test 2020-04-12 00:00:00 Screening for kimmy gnant neoplasm of colon (procedure) [code = 513449442] [facility] Encounters Start Date/Time End Date/Time Encounter Type Admission Type Attendi [facility] Care Department Encounter ID Source 2020-02-26 00:00:00 2020-02-26 00:00:00 Outpatient [facility] [id number] [facility] 2019-09-20 14:17:21 2019-09-20 14:17:21 Outpatient [facility] [id number] [facility] 2019-07-25 12:51:24 2019-07-25 12:51:24 Outpatient [facility] [id number] [facility] 2019-07-20 09:03:37 2019-07-20 09:03:37 Outpatient [facility] [id number] [facility] 2019-07-05 08:11:51 2019-07-05 08:11:51 Outpatient [facility] [id number] [facility] 2019-07-02 10:43:16 2019-07-02 10:43:16 Outpatient [facility] [id number] [facility] 2019-06-28 13:48:30 2019-06-28 13:48:30 Outpatient [facility] [id number] [facility] 2019-06-18 15:34:55 2019-06-18 15:34:55 Outpatient [facility] [id number] [facility] 2019-06-18 00:00:00 2019-06-18 00:00:00 Outpatient [facility] [id number] [facility] 2019-06-12 10:25:23 2019-06-12 10:25:23 Outpatient [facility] [id number] [facility] 2019-06-12 08:44:12 2019-06-12 08:44:12 Outpatient [facility] [id number] [facility] 2019-06-12 00:00:00 2019-06-12 00:00:00 Outpatient [facility] [id number] [facility] 2019-06-06 10:20:00 2019-06-06 13:59:00 Departed Emergency Room 1 LIZZ PLUMMER [facility] [id number] [facility] 2019-05-21 14:56:19 2019-05-21 14:56:19 Outpatient [facility] [id number] [facility] 2019-05-21 09:27:38 2019-05-21 09:27:38 Outpatient [facility] [id number] [facility] 2019-04-12 09:05:34 2019-04-12 09:05:34 Outpatient [facility] [id number] [facility] 2019-04-12 08:50:35 2019-04-12 08:50:35 Outpatient [facility] [id number] [facility] 2019-03-26 12:58:31 2019-03-26 12:58:31 Outpatient [facility] [id number] [facility] 2019-02-22 15:23:31 2019-02-22 15:23:31 Outpatient [facility] [id number] [facility] 2019-02-07 19:42:00 2019-02-07 21:40:00 Departed Emergency Room 1 MATT VILLEGAS [facility] [id number] [facility] 2017-10-25 00:00:00 2017-10-25 00:00:00 Outpatient [facility] [id number] [facility] 2017-09-27 00:00:00 2017-09-27 00:00:00 Outpatient [facility] [id number] [facility] 2017-04-29 08:08:57 2017-04-29 08:08:57 Outpatient [facility] [id number] [facility] 2017-04-07 09:08:04 2017-04-07 09:08:04 Outpatient [facility] [id number] [facility] Results Test Description Test Time Test Comments Results Result Comments Source CHEST SINGLE (PORTABLE) 2020-08-15 11:38:00 [facility] [address] [place] [address] Patient Name: GIOVANNY DAVENPORT MR #: [id number] : 1955 Age/Sex: 65/F Req #: [id number] Adm Physician: Ordered by: LIZZ PLUMMER MD Report #: [id number] Location: ER Room/Bed: Procedure: [id number] DX/CHEST SINGLE (PORTABLE) Exam Date: 08/15/20 Exam Time: 1110 REPORT STATUS: Signed EXAMINATION: CHEST SINGLE (PORTABLE) INDICATION: Numbness COMPARISON: None FINDINGS: LINES/TUBES:None LUNGS:The lungs are well-inflated. No focal consolidation or pulmonary edema. PLEURA:No pleural effusion or pneumothorax. MEDIASTINUM:The cardiomediastinal silhouette appears normal in size and shape. BONES/SOFT TISSUES:No acute osseous injury. ABDOMEN:No free air under the diaphragm. IMPRESSION: No focal pneumonia or pulmonary edema. Signed by: Leonor Oakes MD on 08/15/2020 11:39 AM Dictated By: LEONOR OAKES MD 38 Transcribed By: WILLOW on 08/15/201138 COPY TO: LIZZ PLUMMER MD CT BRAIN WO 2020-08-15 11:33:00 [place] [address] Patient Name: GIOVANNY DAVENPORT MR #: [id number] : 1955 Age/Sex: 65/F Req #: [id number] Adm Physician: Ordered by: LIZZ PLUMMER MD Report #: [id number] Location: ER Room/Bed: Procedure: [id number] CT/CT BRAIN WO Exam Date: 08/15/20 Exam Time: 1111 REPORT STATUS: Signed CT BRAIN WO HISTORY: Numbness on right side, possible stroke COMPARISON: Head CT 06/06/2019 TECHNIQUE: Noncontrast axial scans were obtained from skull base to the vertex. Coronal and sagittal reconstructions obtained from the axial data. One or more of the following dose reduction techniques were used: Automated exposure control, adjustment of the mA and/or kV according to patient size, and/or utilization of iterative reconstruction technique. DISCUSSION: Scalp/Skull: Unremarkable. Brain sulci: Appropriate for patient's age. Ventricles: Normal in size and configuration. No hydrocephalus. Extra-axial spaces: Stable mild focal prominence of the subarachnoid space posterior to the cerebellar vermis could be due to a small arachnoid cyst. No additional masses or fluid collections. Mild carotid siphon calcifications are present. Parenchyma: Mild cerebellar atrophy is unchanged. No mass, hemorrhage, or large vascular territory acute infarct. Dural sinuses: No abnormal densities. Sellar/Suprasellar region: Nonspecific partially empty sella. Skull base: Intact. Incidental findings: None. IMPRESSION: 1. No acute intracranial abnormalities. 2. No significant change compared to head CT date d 06/06/2019. 3. Nonspecific mild cerebellar atrophy. Signed by: Dr. Deon Davis M.D. on 08/15/2020 11:40 AM Dictated By: DEON DAVIS MD 1140 Transcribed By: WILLOW on 08/15/20 1140 COPY TO: LIZZ PLUMMER MD Creatine Kinase MB 2019-06-06 12:30:00 Test Item Creatine Kinase MB (test code = 12679-9) 2.40 0-5.0 [facility] [id number] 12:30:00* Test Item Value Reference Range Interpretation Comments Troponin I (test code = YID2450) 0.004 0-0.300 [facility] Stimulating Hormone (TSH) 2019-06-06 12:30:00* Test Item Value Reference Range Interpretation Comments Thyroid Stimulating Hormone (TSH) (test code = 67526-5) 1.607 0.350-4.940 [facility] [id number] 12:13:00* Test Item Value Reference Range Interpretation Comments Urine WBC (test code = 5821-4) 0-5 0-5 [facility] [id number] 12:13:00* Test Item Value Reference Range Interpretation Comments Urine RBC (test code = 18272-5) 0-5 0-5 [facility] [id number] 12:13:00* Test Item Value Reference Range Interpretation Comments Urine Bacteria (test code = 83051-3) FEW NONE [facility] Epithelial [id number] 12:13:00 * Test Item Value Reference Range Interpretation Comments Urine Epithelial Cells (test code = 74874-9) RARE NONE [facility] [id number] 12:10:00* Test Item Value Reference Range Interpretation Comments Sodium Level (test code = 2951-2) 139 136-145 [facility] Mbhoi3661-19-10 12:10:00* Test Item Value Reference Range Interpretation Comments Potassium Level (test code = 2823-3) 3.3 3.5-5.1 L [facility]loride [id number] 12:10:00* Test Item Value Reference Range Interpretation Comments Chloride Level (test code = 2075-0) 100 98-107 [facility] Dioxide [id number] 12:10:00* Test Item Value Reference Range Interpretation Comments Carbon Dioxide Level (test code = 2028-9) 28 22-29 [facility]Anion [id number] 12:10:00* Test Item Value Reference Range Interpretation Comments Anion Gap (test code = 10610-8) 14.3 8-16 [facility] Urea [id number] 12:10:00* Test Item Value Reference Range Interpretation Comments Blood Urea Nitrogen (test code = 3094-0) 7 7-26 [facility]inine2019-07-24 12:10:00* Test Item Value Reference Range Interpretation Comments Creatinine (test code = 2160-0) 0.69 0.57-1.11 [facility]/Creatinine Ssddq6651-86-32 12:10:00* Test Item Value Reference Range Interpretation Comments BUN/Creatinine Ratio (test code = 3097-3) 10 6-25 [facility] Glomerular Filtration Rate 2019-06-06 12:10:00* Test Item Value Reference Range Interpretation Comments Estimat Glomerular Filtration Rate (test code = 647374713) > 60 >60 Ranges were taken from the National Kidney Disease Education Program and the [facility] [employer] literature.Reference ranges:60 or greater: Oulffk80-90 ( for 3 consecutive months): Chronic kidney disease 15 or less: Kidney failureCHI [facility] Health DentonGlucose Jqsxq2637-63-58 12:10:00* Test Item Value Reference Range Interpretation Comments Glucose Level (test code = RFS2956) 121 74-118 H [facility]Calcium Mwltg2467-37-07 12:10:00* Test Item Value Reference Range Interpretation Comments Calcium Level (test code = 16010-6) 9.7 8.4-10.2 [facility]esium Utrdx4313-27-42 12:10:00* Test Item Value Reference Range Interpretation Comments Magnesium Level (test code = 88033-0) 2.3 1.3-2.1 H [facility] HospitalTotal Gjwkradfy6020-33-58 12:10:00* Test Item Value Reference Range Interpretation Comments Total Bilirubin (test code = 1975-2) 0.8 0.2-1.2 [facility] Hospital[facility]artate Amino Transf (AST/SGOT) 2019-06-06 12:10:00* Test Item Value Reference Range Interpretation Comments Aspartate Amino Transf (AST/SGOT) (test code = Aspartate Amino Transf (AST/SGOT)) 42 5-34 H [facility] HospitalAlanine Aminotransferase (ALT/SGPT) 2019-06-06 12:10:00* Test Item Value Reference Range Interpretation Comments Alanine Aminotransferase (ALT/SGPT) (test code = 1742-6) 48 0-55 [facility] Feyryps6430-80-53 12:10:00* Test Item Value Reference Range Interpretation Comments Total Protein (test code = 2885-2) 8.7 6.5-8.1 H [facility] HospitalAlbumin2019-07-24 12:10:00* Test Item Value Reference Range Interpretation Comments Albumin (test code = 1751-7) 3.7 3.5-5.0 [facility]obulin2019-07-24 12:10:00* Test Item Value Reference Range Interpretation Comments Globulin (test code = 81565-5) 5.0 2.3-3.5 H [facility] HospitalAlbumin/Globulin Lsxnt8969-77-66 12:10:00 * Test Item Value Reference Range Interpretation Comments Albumin/Globulin Ratio (test code = 1759-0) 0.7 0.8-2.0 L [facility] HospitalAlkaline Ztxavrnqnjz0183-26-76 12:10:00* Test Item Value Reference Range Interpretation Comments Alkaline Phosphatase (test code = 6768-6) 99 40-150 [facility]Creatine Jobmtd6314-44-17 12:10:00* Test Item Value Reference Range Interpretation Comments Creatine Kinase (test code = 2157-6) 139 29-168 [facility] HospitalAmylase Flott5655-15-29 12:10:00* Test Item Value Reference Range Interpretation Comments Amylase Level (test code = 1798-8) 64 25-125 [facility]Lipase2019-07-24 12:10:00* Test Item Value Reference Range Interpretation Comments Lipase (test code = 3040-3) 39 8-78 [facility] Bqeix9306-78-00 11:54:00* Test Item Value Reference Range Interpretation Comments Urine Color (test code = 5778-6) YELLOW YELLOW [facility] Mevmiuz5938-64-02 11:54:00* Test Item Value Reference Range Interpretation Comments Urine Clarity (test code = 12628-2) CLEAR CLEAR [facility] Hospital[facility] Specific Eqkpcoc4146-21-07 11:54:00 * Test Item Value Reference Range Interpretation Comments Urine Specific [place] (test code = 5811-5) 1.010 1.010-1.02 5 [facility] [id number] 11:54:00* Test Item Value Reference Range Interpretation Comments Urine pH (test code = 23573-8) 6 5-7 [facility] Leukocyte Asrodwqm6398-55-53 11:54:00* Test Item Value Reference Range Interpretation Comments Urine Leukocyte Esterase (test code = 15250-2) NEGATIVE NEGATIV E [facility] Svrxkbn9401-75-02 11:54:00* Test Item Value Reference Range Interpretation Comments Urine Nitrite (test code = 01739-5) NEGATIVE NEGATIVE [facility] Feyyebs4826-91-34 11:54:00* Test Item Value Reference Range Interpretation Comments Urine Protein (test code = 99520-1) NEGATIVE NEGATIVE [facility] Glucose (UA)2019-06-06 11:54:00* Test Item Value Reference Range Interpretation Comments Urine Glucose (UA) (test code = 63573-2) NEGATIVE NEGATIVE [facility] Nibiomx1845-44-80 11:54:00* Test Item Value Reference Range Interpretation Comments Urine Ketones (test code = 33707-9) NEGATIVE NEGATIVE [facility] Pzvolhgwanaw4393-99-70 11:54:00* Test Item Value Reference Range Interpretation Comments Urine Urobilinogen (test code = 05503-3) 0.2 0.2-1 [facility] Rddzoiaht3306-40-06 11:54:00* Test Item Value Reference Range Interpretation Comments Urine Bilirubin (test code = 1977-8) NEGATIVE NEGATIVE [facility] Micdy5751-47-40 11:54:00* Test Item Value Reference Range Interpretation Comments Urine Blood (test code = 46432-3) TRACE NEGATIVE [facility] [id number] 11:38:00* Test Item Value Reference Range Interpretation Comments White Blood Count (test code = 6690-2) 5.93 4.8-10.8 [facility] [id number] 11:38:00* Test Item Value Reference Range Interpretation Comments Red Blood Count (test code = 789-8) 4.25 3.6-5.1 [facility]2019-[facility] 11:38:00* Test Item Value Reference Range Interpretation Comments Hemoglobin (test code = 19710-9) 13.0 12.0-16.0 [facility]ematocrit2019-07-24 11:38:00* Test Item Value Reference Range Interpretation Comments Hematocrit (test code = 4544-3) 39.8 34.2-44.1 [facility] Corpuscular [id number] 11:38:00* Test Item Value Reference Range Interpretation Comments Mean Corpuscular Volume (test code = 787-2) 93.6 81-99 [facility] Corpuscular [id number] 11:38:00* Test Item Value Reference Range Interpretation Comments Mean Corpuscular Hemoglobin (test code = 785-6) 30.6 28-32 [facility] Hemoglobin Concent 2019-06-06 11:38:00* Test Item Value Reference Range Interpretation Comments Mean Corpuscular Hemoglobin Concent (test code = 786-4) 32.7 31-35 [facility] Cell Distribution [id number] 11:38:00* Test Item Value Reference Range Interpretation Comments Red Cell Distribution Width (test code = 14673-8) 13.6 11.7 -14.4 [facility]Platelet [id number] 11:38:00* Test Item Value Reference Range Interpretation Comments Platelet Count (test code = 777-3) 266 140-360 [facility]ut[facility]ils (%) (Auto)2019-06-06 11:38:00 * Test Item Value Reference Range Interpretation Comments Neutrophils (%) (Auto) (test code = 39290-1) 56.7 38.7-80.0 [facility]Lymphocytes (%) (Auto)2019-06-06 11:38:00 * Test Item Value Reference Range Interpretation Comments Lymphocytes (%) (Auto) (test code = 736-9) 34.2 18.0-39.1 [facility] (%) (Auto)2019-06-06 11:38:00* Test Item Value Reference Range Interpretation Comments Monocytes (%) (Auto) (test code = 5905-5) 7.6 4.4-11.3 [facility]osinophils (%) (Auto)2019-06-06 11:38:00 * Test Item Value Reference Range Interpretation Comments Eosinophils (%) (Auto) (test code = 713-8) 0.5 0.0-6.0 [facility] (%) (Auto)2019-06-06 11:38:00* Test Item Value Reference Range Interpretation Comments Basophils (%) (Auto) (test code = 706-2) 0.7 0.0-1.0 [facility]IM [facility]ULOCYTES %2019-06-06 11:38:00* Test Item Value Reference Range Interpretation Comments IM GRANULOCYTES % (test code = IM GRANULOCYTES %) 0.3 0.0- 1.0 [facility]utrophils # (Auto)2019-06-06 11:38:00* Test Item Value Reference Range Interpretation Comments Neutrophils # (Auto) (test code = 751-8) 3.4 2.1-6.9 [facility]Lymphocytes # (Auto)2019-06-06 11:38:00* Test Item Value Reference Range Interpretation Comments Lymphocytes # (Auto) (test code = 41159-7) 2.0 1.0-3.2 [facility] # (Auto)2019-06-06 11:38:00* Test Item Value Reference Range Interpretation Comments Monocytes # (Auto) (test code = 742-7) 0.5 0.2-0.8 [facility]osin[facility] # (Auto)2019-06-06 11:38:00* Test Item Value Reference Range Interpretation Comments Eosinophils # (Auto) (test code = 711-2) 0.0 0.0-0.4 [facility] # (Auto)2019-06-06 11:38:00* Test Item Value Reference Range Interpretation Comments Basophils # (Auto) (test code = 704-7) 0.0 0.0-0.1 [facility] HospitalAbsolute Immature Granulocyte (auto 2019-06-06 11:38:00* Test Item Value Reference Range Interpretation Comments Absolute Immature Granulocyte (auto (eliud t code = Absolute Immature Granulocyte (auto) 0.02 0-0.1 [facility]INGLE ([facility])2019-06-06 11:19:00 [facility] [address] [address] Patient Name: GIOVANNY DAVENPORT MR #: [id number] : 1955 Age/Sex: 64/F Req #: [id number] Adm Physician: Ordered by: TIFFANIE RENTERIA NP Report #: [id number] Location: ER Room/Bed: Procedure: [id number] DX/CHEST SINGLE (PORTABLE) Exam Date: 06/06/19 Exam Time: 1100 REPORT STATUS: Signed EXAMINATION: CHEST SINGLE (PORTABLE) INDICATION: Pain COMPARISON: None FINDINGS: TUBES and LINES: None. LUNGS: The lung volumes are normal. No focal consolidation or pulmonary edema. PLEURA: No pleural effusion or pneumothorax. HEART AND MEDIASTINUM: The cardiomediastinal silhouette is normal in size and contour. BONES AND SOFT TISSUES: No acut e fracture or dislocation. UPPER ABDOMEN: No free air under the diaphragm. IMPRESSION: No focal pneumonia or pulmonary edema. Signed by: Funmilayo Oakes MD on 06/06/2019 11:19 AM Dictated By: LEONOR OAKES MD Electronicall y Signed By: LEONOR OAKES MD on 06/06/191118 Transcribed By: WILLOW on 06/06/191118 COPY TO: TIFFANIE RENTERIA NP CT BRAIN [id number] 11:10:00 [facility] [address] [place] [address] Patient Name: GIOVANNY DAVENPORT MR #: [id number] : [birth year] Age/Sex: 64/F Req #: [id number] Adm Physician: Ordered by: TIFFANIE RENTERIA ANNUAL GIVING MANAGER Report #: [id number] Location: ER Room/Bed: Procedure: [id number] CT/CT BRAIN WO Exam Date: Exam Time: REPORT STATUS: Signed Exam: Head CT without c ontrast History: Weakness, tremulous, can't walk Comparison studies: None Technique: Axial images were obtained from the skull base to the vertex. Coronal and sagittal images reconstructed from the axial data. Dose modulat ion, iterative reconstruction, and/or weight based adjustment of the mA/kV was utilized to reduce the radiation dose to as low as reasonably achievable. Radiation dose: Total DLP: 921 mGy*cm. Estimated effective dose: DLP x 0.015 Intravenous contrast: None Findings: Scalp: No abnormalities. Bones: No fractures, blastic or lytic lesions. Brain sulci: Prominent c erebellar folia particularly along the superior cerebellum and vermis. Similar findings have been reported in patients with history of chronic EtOH in the a ppropriate clinical setting, among other etiologies. Remaining sulci are shaggy l for age. Ventricles: Normal in size and configuration. No hydrocephalus. Extra-axial spaces: Incidental small midline retrocerebellar arachnoid cyst. No other mass or fluid collection. Parenchyma: No abnormal densities. No masses, acute hemorrhage, acute or chronic vascular insults. Sellar/s uprasellar region: Partially CSF of sella, a nonspecific finding. Craniocervic al junction: Patent foramen magnum. No Chiari one malformation. Incidental findings: Atherosclerotic calcifications in the carotid siphons. IMPRES LUCINA: 1. No acute intracranial abnormalities. 2. Nonspecific cerebella r volume loss. Signed by: Dr. Winnie Lieberman M.D. on 06/06/2019 11:26 AM Dictated By: WINNIE LIEBERMAN MD 25 Transcribed By: WILLOW on 06/06/191125 COPY TO: TIFFANIE HUGHES NP CHEST 2 [id number] 20:56:[address] [address] Patient Name: GIOVANNY DAVENPORT MR #: [id number] : 1955 Age/Sex: 63/F Req #: [id number] Adm Physician: Ordered by: MATT VILLEGAS MD Report #: [id number] Location: ER Room/Bed: Procedure: [id number] DX/CHEST 2 VIEWS Exam Date: Exam Time: REPORT STATUS: Signed EXAMINATION: [facility] ST 2 VIEWS INDICATION: COUGH, SORE THROAT Y COMPARISON: No ne FINDINGS: PA and lateral views TUBES and LINES: None. L UNGS: Lungs are well inflated. There is no evidence of pneumonia or pulmonar y edema. PLEURA: No pleural effusion or pneumothorax. Mild eventration of the right diaphragm. HEART AND MEDIASTINUM: The heart is normal in size. The aortic arch is ectatic. BONES AND SOFT TISSUES: Mild degenerative changes of the spine. There is trace inferior subluxation of the right humeral head. This may be positional. No associated fracture. Soft tissues are unre markable. UPPER ABDOMEN: No free air under the diaphragm. IMPRESSION: No acute thoracic abnormality. Signed by: Dr. Izabela Barros MD on 02/07/2019 8:58 PM Dictated By: IZABELA BARROS MD 59 Transcribed By: WILLOW on 2057 COPY TO: MATT VILLEGAS MD Influenza Virus Types A,B [id number] 20:46:00* Test Item Value Reference Range Interpretation Comments Influenza Virus Types A,B Antigen (test code = 70728-6) NEGATIVE NEGATIVE [facility]Influenza Virus Types A,B Antigen 2019-02-07 20:46:00* Test Item Value Reference Range Interpretation Comments Influenza Virus Types A,B Antigen (test code = 12893-8) NEGATIVE NEGATIVE [facility] A Streptococcus [id number] 20:39:00* Test Item Value Reference Range Interpretation Comments Group A Streptococcus Screen (test code = 55370-3) NEGATIVE NEG ATIVE [facility] A Streptococcus [id number] 20:39:00* Test Item Value Reference Range Interpretation Comments Group A Streptococcus Screen (test code = 04173-0) NEGATIVE NEG ATIVE [facility]
--- OUTSIDE RECORDS SUMMARY | 2020-08-15 12:00 | XMS REPORT | Clinical Summary ---
Author Author [facility] Organization [facility] Address Unknown Phone Unavailable Care Team Providers Care Irrigator Overhead Name Role Phone Marlin Colvin MD PCP Jami Ayers MD PCP [phone] Allergies Comments Active Allergy Reactions Severity Noted Date Zach Inhibitors Cough Medium 12/11/2007 Medications End Date Status Medication Sig Dispensed Refills Start Date Active polyethylene glycol Add lukewarm 4000 mL 0 06/04 (GOLYTELY) 236-22.74-6.74 drinking 6 -5.86 gram oral water to the solutionIndications: fill lydia (4 Family history of colon liters) and cancer shake. Drink as directed by your doctor.. Active albuterol (VENTOLIN Inhale 2 20.1 g 1 HFA,PROVENTIL HFA,PROAIR Puffs by 6 HFA) 90 mcg/actuation mouth 4 times inhalerIndications: Acute daily as bronchitis, unspecified needed for organism Wheezing or Shortness of Breath. Active aspirin 81 mg delayed Take 1 tablet 90 tablet 0 release by mouth 7 tabletIndications: daily. Dyspnea, unspecified type Active ketoconazole (NIZORAL) 2 Apply to 60 g 2 0 % topical affected area 8 creamIndications: daily. Onychomycosis Active ergocalciferol (VITAMIN Take 1 12 capsule 0 D2) 50,000 unit capsule by 8 capsuleIndications: mouth weekly. Vitamin D deficiency Active hydroCHLOROthiazide Take 1 tablet 90 tablet 0 06/14 (HYDRODIURIL) 25 mg by mouth 8 tabletIndications: Leg daily as swelling needed (leg swelling). Active montelukast (SINGULAIR) Take 1 tablet 90 tablet 3 10 mg tabletIndications: by mouth at 9 Moderate persistent bedtime asthma without nightly. complication Active loratadine (CLARITIN) 10 Take 1 tablet 90 tablet 3 mg tabletIndications: by mouth 9 Cough daily as needed for Allergies. Active Miscellaneous Medical by 1 Each 0 03/14 Supply MiscIndications: Misc.(Non-Jem 9 MARY GRACE (obstructive sleep g; Combo apnea) Route) route Apap 16-25 cm H2O for moderate sleep apnea. Active fluticasone Inhale 1 Puff 60 Each 3 propion-salmeteroL by mouth 2 9 (ADVAIR) 250-50 mcg/dose times daily. diskus inhalerIndications: Moderate persistent asthma without complication Active albuterol 90 Inhale 2 30 g 3 mcg/actuation Puffs by 0 inhalerIndications: mouth every 4 Restrictive airway hours as disease, Asthmatic needed for bronchitis, severe Wheezing or persistent, uncomplicated Shortness of Breath. Active simvastatin (ZOCOR) 20 mg Take 1 tablet 90 tablet 3 tabletIndications: by mouth at 0 Hypercholesterolemia bedtime nightly. Active valsartan (DIOVAN) 80 mg Take 1 tablet 90 tablet 0 tabletIndications: by mouth 0 Essential hypertension daily. 07/07/2021 Active amLODIPine (NORVASC) 10 TOME 1 90 tablet 3 mg tabletIndications: TABLETA POR 0 Essential hypertension LA BOCA CADA ABBIE PARA LA MARISOL PRESION 03/10/2020 Discontinued (Reorder) simvastatin (ZOCOR) 20 mg Take 1 tablet 90 tablet 3 tabletIndications: by mouth at 9 Hypercholesterolemia bedtime nightly. 12/11/2019 Discontinued albuterol 90 Inhale 2 30 g 3 mcg/actuation Puffs by 9 inhalerIndications: mouth every 4 Restrictive airway hours as disease, Asthmatic needed for bronchitis, severe Wheezing or persistent, uncomplicated Shortness of Breath. 12/13/2019 Discontinued (Reorder) valsartan (DIOVAN) 80 mg Take 1 tablet 90 tablet 1 tabletIndications: by mouth 9 Essential hypertension daily stop losartan. 07/22/2020 Discontinued (Reorder) amLODIPine (NORVASC) 10 TOME 1 90 tablet 3 /201 mg tabletIndications: TABLETA POR 9 Essential hypertension LA BOCA CADA ABBIE PARA LA MARISOL PRESION 03/12/2020 Discontinued (Reorder) valsartan (DIOVAN) 80 mg Take 1 tablet 90 tablet 0 tabletIndications: by mouth 0 Essential hypertension daily. Active Problems Problem Noted Date MARY GRACE (obstructive sleep apnea) Needs APAP 16-25 H2O 0 05/31/2018 BMI 39.0-39.9,adult 02/28/2017 Family history of colon cancer 08/23/2014 Cough 05/08/2008 Asthma, moderate persistent 12/11/2007 Allergic rhinitis, cause unspecified 10/12/2006 HTN (hypertension), benign 07/20/2006 Hypercholesterolemia 07/15/2006 Asthmatic bronchitis, severe persistent , uncomplicated SOB (shortness of breath) Encounters Care Team Description Date Type Specialty Jordan Weathers MD Medications 07/22/2020 Refill Pulmonology Marlin Colvin MD Medications 03/12/2020 Refill [facility] Jordan Waethers MD Medications 03/10/2020 Refill Pulmonology Carey Tyler ResidentDO Samudralwar, Rohini D, MD Wu, Joanna J, ResidentMD Tremor (Primary Dx) 02/26/2020 Office Visit Neurology Marlin Colvin MD Medications 12/13/2019 Refill [facility] Jordan Weathers MD Medications 12/11/2019 Refill Pulmonology Eugene Bassett ResidentMD Memory impairment (Primary Dx); Gait instability; Dysarthria 09/20/2019 Office Visit Neurology Eugene Bassett ResidentMD 09/20/2019 Orders Only Neurology after 08/15/2019 Immunizations Name Administration Dates Next Due Herpes Zoster Vaccine In 04/07/2018 Clinic Influenza Vaccine 01/25/2017 (Deferred: Other ), 10/21/2015 (Deferred: Other - patient to return fo r vaccine when feeling better.), 08/23/2014, 09/14, 11/13/2012 (Deferred: Unavailable-Patie nt to return for vaccine later - Unavailable) , 11/22/2011 (Deferred: Patient Refused), 11/03/2010, 10/16/2008 Influenza, 09/19/2018 Vaccine<FLUCELVAX>(Multi- Dose) PPV 23 Pneumococcal 10/16/2008 Polysaccaride Td Tetanus, diphtheria 10/16/2008 Toxoids Vaccine Tdap (Tetanus Toxoid, 03/26/2019 Reduced Diphtheria Toxoid And Acellular Pertussis, Absorbed) Family History Medical History Relation Name Comments [...] 12 months, you worried that your Never angelique e 04/07/2018 food would run out before you got money to buy more. Within the past 12 months, the food you bought Never true 04/07/2018 just didn't last and you didn't have mo marilyn to get more. Sex Assigned at Date Recorded Not on file Industry Job Start Date Occupation Not on file Not on file Not on file Travel End Travel History Travel Start No recent travel history available. Last Filed Vital Signs Reading Time Taken Comments Vital Sign 120/79 09/20/2019 2:14 PM [employer] Blood Pressure 94 09/20/2019 2:14 PM [employer] Pulse 36.6 C (97.9 F) 09/20/2019 2:14 PM [employer] Temperature 18 09/20/2019 2:14 PM [employer] Respiratory Rate - - Oxygen Saturation - - Inhaled Oxygen Concentration 81.2 kg (179 lb) 09/20/2019 2:14 PM [employer] Weight 154.9 cm (5' 1") 09/20/2019 2:14 PM [employer] Height 33.82 09/20/2019 2:14 PM [employer] Body Mass Index Plan of Treatment Health Maintenance Due Date Last Done Comments Breast Cancer Scrn 04/12/2020 04/12/2019, (Yearly) 04/28/2018, 03/07/2017, Additional history exists Colorectal Cancer Scrn 04/12/2020 04/12/2019, Annual (FIT/FOBT) Age 52 11/24/2017, to 77 12/03/2016, Additional history exists Cervical Cancer Scrn (3 09/19/2021 09/19/2018, Yrs) 02/17/2015, 11/24/2010 Results Not on fileafter 08/15/2019 Insurance Type Payer Benefit Subscriber ID Effective Phone Address Plan / Dates Group [employer] [employer] [place] x[place] 2019- [address] [employer] [address] [id number] [place], [place] [address] [facility] FINANCIAL xxxxx 2019- [phone] [address] [place] [address]
--- NOTE | 2020-08-15 12:41 | Emergency Department Note ---
History of Present Illnes History of Present Illness Chief Complaint: General Medicine Complaints History of Present Illness This is a 65 year old female RT SIDE HEAD, SCALP BUT NOT EAR, RT BACK AND SHOULDER. AAOX4. AMBULATORY. NO NEURO DEF NOTED AT TRIAGE. PLEASANT. NO CP NO SOB. EVEN STEADY GAIT. STARTED 30 MINS AGO, LASTED ONLY SECONDS Historian: Patient Arrival Mode: Car Analytics Lead Required: No Onset (how long ago): minute(s) (30-40 MINS) Location: RIGHT SIDE SCALP BUT NOT THE EAR, RIGHT SHOULDER, RIGHT UPPER BACK Quality: NUMBNESS Radiation: Reports non-radiation Severity: mild Onset quality: sudden Progression: resolved (WITHIN SECONDS) Chronicity: new Context: Denies recent illness Relieving factors: none Exacerbating factors: none Associated symptoms: Reports denies other symptoms Past Medical/Family History Physician Review I have reviewed the patient's past medical and family history. Any updates have been documented here. Past Medical History Recent Fever: No Clinical Suspicion of Infectio: No New/Unexplained Change in Ment: No Past Medical History: Hypertension, Asthma, Hyperlipedemia Other Medical History: parkinson's Past Surgical History: Social History Smoking Cessation: Never Smoker Counseling Performed: No Alcohol Use: None Any Illegal Drug Use: No TB Exposure/Symptoms: No Physically hurt or threatened: No Family History Family history of heart diseas: No Other Last Tetanus: UTD Any Pre-Existing Lines (PICC,: No Review of Systems Review of Systems Constitutional: Reports no symptoms EENTM: Reports no symptoms Cardiovascular: Reports no symptoms Respiratory: Reports no symptoms Gastrointestinal: Reports no symptoms Genitourinary: Reports no symptoms Musculoskeletal: Reports no symptoms Integumentary: Reports no symptoms Neurological: Reports as per HPI, Reports numbness Psychological: Reports no symptoms Endocrine: Reports no symptoms Hematological/Lymphatic: Reports no symptoms Physical Exam Related Data Allergies: Coded Allergies: enalapril (Verified Allergy, Severe, 02/07/19) Triage Vital Signs Vital Signs Date Time Temp Pulse Resp B/P (MAP) Pulse Ox O2 Delivery O2 Flow Rate FiO2 08/15/20 10:47 98.1 92 18 140/99 98 Room Air Vital signs reviewed: Yes Physical Exam CONSTITUTIONAL Constitutional: Present well-developed, Present well-nourished HENT HENT: Present normocephalic, Present atraumatic, Present oropharynx clear/moist, Present nose normal HENT L/R: Present left ext ear normal, Present right ext ear normal EYES Eyes: Reports PERRL, Reports conjunctivae normal NECK Neck: Present ROM normal PULMONARY Pulmonary: Present effort normal, Present breath sounds normal CARDIOVASCULAR Cardiovascular: Present regular rhythm, Present heart sounds normal, Present capillary refill normal, Present normal rate GASTROINTESTINAL Abdominal: Present soft, Present nontender, Present bowel sounds normal GENITOURINARY Genitourinary: Present exam deferred SKIN Skin: Present warm, Present dry MUSCULOSKELETAL Musculoskeletal: Present ROM normal NEUROLOGICAL Neurological: Present alert, Present oriented x 3, Present DTRs normal, Present no gross motor or sensory deficits; Absent cranial nerve deficit, Absent sensory deficit, Absent abnormal DTRs, Absent abnormal coordination, Absent abnormal gait, Absent weakness PSYCHOLOGICAL Psychological: Present mood/affect normal, Present judgement normal Results Laboratory Result Diagram: 08/15/20 1056 08/15/20 1056 Laboratory Laboratory Tests Test 08/15/20 10:56 White Blood Count 7.03 x10e3/uL (4.8-10.8) Red Blood Count 4.76 x10e6/uL (3.6-5.1) Hemoglobin 14.4 g/dL (12.0-16.0) Hematocrit 44.8 % (34.2-44.1) Mean Corpuscular Volume 94.1 fL (81-99) Mean Corpuscular Hemoglobin 30.3 pg (28-32) Mean Corpuscular Hemoglobin Concent 32.1 g/dL (31-35) Red Cell Distribution Width 13.6 % (11.7-14.4) Platelet Count 233 x10e3/uL (140-360) Neutrophils (%) (Auto) 41.3 % (38.7-80.0) Lymphocytes (%) (Auto) 47.2 % (18.0-39.1) Monocytes (%) (Auto) 8.4 % (4.4-11.3) Eosinophils (%) (Auto) 2.4 % (0.0-6.0) Basophils (%) (Auto) 0.4 % (0.0-1.0) Neutrophils # (Auto) 2.9 (2.1-6.9) Lymphocytes # (Auto) 3.3 (1.0-3.2) Monocytes # (Auto) 0.6 (0.2-0.8) Eosinophils # (Auto) 0.2 (0.0-0.4) Basophils # (Auto) 0.0 (0.0-0.1) Absolute Immature Granulocyte (auto 0.02 x10e3/uL (0-0.1) Prothrombin Time 12.8 seconds (11.9-14.5) Prothromb Time International Ratio 0.92 Activated Partial Thromboplast Time 27.9 seconds (23.8-35.5) Sodium Level 140 mmol/L (136-145) Potassium Level 3.9 mmol/L (3.5-5.1) Chloride Level 102 mmol/L (98-107) Carbon Dioxide Level 28 mmol/L (22-29) Anion Gap 13.9 mmol/L (8-16) Blood Urea Nitrogen 9 mg/dL (7-26) Creatinine 0.67 mg/dL (0.57-1.11) Estimat Glomerular Filtration Rate > 60 ML/MIN (60-) BUN/Creatinine Ratio 13 (6-25) Glucose Level 99 mg/dL (74-118) Calcium Level 10.2 mg/dL (8.4-10.2) Magnesium Level 2.0 MG/DL (1.3-2.1) Total Bilirubin 0.7 mg/dL (0.2-1.2) Aspartate Amino Transf (AST/SGOT) 41 IU/L (5-34) Alanine Aminotransferase (ALT/SGPT) 45 IU/L (0-55) Alkaline Phosphatase 108 IU/L (40-150) Creatine Kinase 118 IU/L (29-168) Creatine Kinase MB 2.20 ng/mL (0-5.0) Troponin I < 0.001 ng/mL (0-0.300) Total Protein 8.7 g/dL (6.5-8.1) Albumin 4.7 g/dL (3.5-5.0) Globulin 4.0 g/dL (2.3-3.5) Albumin/Globulin Ratio 1.2 (0.8-2.0) Thyroid Stimulating Hormone (TSH) 1.815 uIU/mL (0.350-4.940) Lab results reviewed: Yes Imaging Imaging results reviewed: Yes Procedures 12 Lead ECG Interpretation ECG Interpretation : ECG: ECG 1 Analytics Lead: Interpreted by ED physician Date: Aug 15, 2020 Time: 10:52 Rhythm: sinus rhythm Rate: normal BPM: 97 QRS axis: normal ST segments normal: Yes T waves flattening: II, III, aVF, V4, V5, V6 Clinical Impression: abnormal ECG Assessment & Plan Medical Decision Making MDM NUMBNESS ON RIGHT, STRANGE DISTRIBUTION AND ONLY LASTED SECONDS, TOOK [employer] 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 [employer] FLOOR COVERING - CHECK CBC, CHEM, TSH, CT BRAIN - EVAL FOR ELECTROLYTE ABNL, THYROID DYSFUNCTION, RENAL INSUFF, CVA, CERBRAL BLEED Reassessment Reassessment DC HOME, F/U PCP Assessment & Plan Final Impression: (1) Paresthesias Depart Disposition: HOME, SELF-CARE Last Vital Signs Date Time Temp Pulse Resp B/P (MAP) Pulse Ox O2 Delivery O2 Flow Rate FiO2 08/15/20 10:47 98.1 92 18 140/99 98 Room Air Medications in the ED Sodium Chloride 1,000 ml @ 0 mls/hr Q0M STAT IV Last administered on 08/15/20at 11:50; Admin Dose 1,000 MLS/HR; Start 08/15/20 at 10:52; Stop 08/15/20 at 10:56; Status DC LIZZ PLUMMER MD Aug 15, 2020 12:41
== END 2020-08-15 12:54 | disposition home or self-care (01) ==
LOC: ER 10:50
DX: R20.2 Paresthesia of skin (principal); R94.31 Abnormal electrocardiogram [ECG] [EKG]; I10 Essential (primary) hypertension; G20 Parkinson's disease; E78.5 Hyperlipidemia, unspecified; J45.909 Unspecified asthma, uncomplicated
CPT/HCPCS: 36415; 70450; 71045; 80053; 82550; 82553; 83735; 84443; 84484; 85025; 85610; 85730; 93005; 99284; J7030

== ENCOUNTER 2022-08-01 08:49 | Emergency (ER) | payer OTHER, MEDICARE ==
[~2022-08-01] VITALS: Ht 144.8 cm; Wt 83.0 kg
[2022-08-01] MEDS ORDERED: SODIUM CHLORIDE 0.9% 1000ML 1,000 ML IV SCH (09:30)
[2022-08-01 09:37] LABS: BASOPHILS % 0.5 % (0.0-1.0); EOSINOPHILS # (AUTO) 0.2 (0.0-0.4); EOSINOPHILS % 2.4 % (0.0-6.0); HEMATOCRIT 40.4 % (34.2-44.1); HEMOGLOBIN 12.8 g/dL (12.0-16.0); LYMPHOCYTES % 39.5 % (18.0-39.1); MEAN CORPUSCULAR HEMOGLOBIN 30.7 pg (28-32); MEAN CORPUSCULAR HGB CONC 31.7 g/dL (31-35); MEAN CORPUSCULAR VOLUME 96.9 fL (81-99); MONOCYTES # (AUTO) 0.6 (0.2-0.8); MONOCYTES % 8.2 % (4.4-11.3); NEUTROPHILS # (AUTO) 3.7 (2.1-6.9); NEUTROPHILS % 48.7 % (38.7-80.0); PLATELET COUNT 248 x10e3/uL (140-360); RED BLOOD COUNT 4.17 x10e6/uL (3.6-5.1); RED CELL DISTRIBUTION WIDTH 13.5 % (11.7-14.4)
[2022-08-01 09:56] LABS: ALBUMIN 3.8 g/dL (3.5-5.0); ALBUMIN/GLOBULIN RATIO 0.9 (0.8-2.0); ANION GAP 19.6 mmol/L (8-16); CREATININE, SERUM 0.66 mg/dL (0.57-1.11); POTASSIUM 3.6 mmol/L (3.5-5.1)
[2022-08-01 10:09] LABS: CLARITY,URINE CLEAR (CLEAR); COLOR,URINE YELLOW (YELLOW); KETONES,URINE NEGATIVE (NEGATIVE); LEUKOCYTE ESTERASE ,URINE NEGATIVE (NEGATIVE); NITRITE,URINE NEGATIVE (NEGATIVE); PROTEIN,URINE DIPSTICK 1+ (NEGATIVE)
[2022-08-01 10:10] LABS: URINE UROBILINOGEN 0.2 mg/dL (0.2 - 1)
[2022-08-01 10:27] LABS: BACTERIA,URINE FEW /HPF; EPITHELIAL CELLS,URINE RARE /LPF; WBC,URINE (MAN) 0-5 /HPF (0-5)
== END 2022-08-01 10:54 | disposition home or self-care (01) ==
LOC: ER 09:00
DX: R00.2 Palpitations (principal); R50.9 Fever, unspecified; G20 Parkinson's disease; I10 Essential (primary) hypertension; E78.5 Hyperlipidemia, unspecified; J45.909 Unspecified asthma, uncomplicated
CPT/HCPCS: 36415; 71045; 80053; 81001; 83880; 84484; 85025; 93005; 99284

== ENCOUNTER 2022-11-27 09:20 | Emergency (ER) | payer MEDICARE ==
[~2022-11-27] VITALS: Ht 144.8 cm; Wt 83.0 kg
[2022-11-27] MEDS ORDERED: MECLIZINE HCL 12.5 MG TAB PO ONE (09:45)
[2022-11-27 09:46] LABS: BASOPHILS % 0.6 % (0.0-1.0); EOSINOPHILS # (AUTO) 0.2 (0.0-0.4); EOSINOPHILS % 2.6 % (0.0-6.0); HEMATOCRIT 44.2 % (34.2-44.1); HEMOGLOBIN 13.6 g/dL (12.0-16.0); LYMPHOCYTES % 45.4 % (18.0-39.1); MEAN CORPUSCULAR HEMOGLOBIN 30.8 pg (28-32); MEAN CORPUSCULAR HGB CONC 30.8 g/dL (31-35); MONOCYTES # (AUTO) 0.5 (0.2-0.8); MONOCYTES % 7.5 % (4.4-11.3); NEUTROPHILS # (AUTO) 2.8 (2.1-6.9); NEUTROPHILS % 43.7 % (38.7-80.0); PLATELET COUNT 275 x10e3/uL (140-360); RED BLOOD COUNT 4.42 x10e6/uL (3.6-5.1)
[2022-11-27] MEDS ORDERED: MECLIZINE HCL 12.5 MG TAB ONE (09:51)
[2022-11-27 10:27] LABS: ALBUMIN 3.8 g/dL (3.5-5.0); ALBUMIN/GLOBULIN RATIO 0.9 (0.8-2.0); ANION GAP 15.9 mmol/L (8-16); CALCIUM 9.1 mg/dL (8.4-10.2); CREATININE, SERUM 0.64 mg/dL (0.57-1.11); POTASSIUM 3.9 mmol/L (3.5-5.1)
[2022-11-27 10:42] LABS: CLARITY,URINE CLEAR (CLEAR); COLOR,URINE YELLOW (YELLOW); KETONES,URINE NEGATIVE (NEGATIVE); LEUKOCYTE ESTERASE ,URINE NEGATIVE (NEGATIVE); NITRITE,URINE NEGATIVE (NEGATIVE); PROTEIN,URINE DIPSTICK NEGATIVE (NEGATIVE); URINE UROBILINOGEN 0.2 mg/dL (0.2 - 1)
[2022-11-27 10:55] LABS: BACTERIA,URINE MODERATE /HPF; EPITHELIAL CELLS,URINE MANY /LPF
[2022-11-27] MEDS ORDERED: MECLIZINE HCL12.5 MG PO (11:49)
[2022-11-27 11:58] VITALS: BP 120/69
== END 2022-11-27 12:08 | disposition home or self-care (01) ==
LOC: ER 09:24
DX: R42 Dizziness and giddiness (principal); I10 Essential (primary) hypertension; E78.5 Hyperlipidemia, unspecified; G20 Parkinson's disease; J45.909 Unspecified asthma, uncomplicated; Z20.822 Contact with and (suspected) exposure to COVID-19; R94.31 Abnormal electrocardiogram [ECG] [EKG]
CPT/HCPCS: 36415; 70450; 71045; 80053; 81001; 84484; 85025; 93005; 99284; J8597; U0002